=== PATIENT | male | born 1955 | race Caucasian/White ===

== ENCOUNTER 2020-06-07 11:44 | Outpatient (NON) | payer MEDICARE, OTHER, SELFPAY ==
[2020-06-07 13:29] LABS: Appearance Synovial Fluid Clear (Clear); Color Synovial Fluid Yellow (Colorless); Nucleated Cell Synovial Fluid 1867 /uL (0-200); Source Synovial Fluid Synovial fluid
[2020-06-07 13:30] LABS: Lymphocytes Synovial Fluid 13 %; Macrophages Synovial Fluid 8 %; Monocytes Synovial Fluid 2 %; Neutrophils Synovial Fluid 77 % (0-25); RBC Synovial Fluid 610 /uL (0-0)
[2020-06-07 13:54] LABS: Crystals Synovial Fluid Few Cppd (None Seen)
== END 2020-06-07 11:45 ==
PROVIDERS: PCP Family Medicine; Visit Provider Orthopaedic Surgery
DX: M25.561 Pain in right knee (principal)
CPT/HCPCS: 88108; 89051; 89060

== ENCOUNTER → 2021-01-16 08:47 | Outpatient (CLI) | payer MEDICARE, OTHER, SELFPAY ==
[2021-01-16 18:14] LABS: SARS-CoV-2 RNA PCR Negative
== END ==
PROVIDERS: PCP Family Medicine; Visit Provider Physician Assistant
DX: Z20.822 Contact with and (suspected) exposure to COVID-19 (principal); R05 Cough
CPT/HCPCS: C9803; U0003; U0005

== ENCOUNTER 2021-08-20 09:19 | Outpatient (CLI) | payer MEDICARE, OTHER, SELFPAY ==
--- NOTE | 2021-08-20 09:25 | ECG_ITS ---
Measurements Intervals [place] Rate: 64 P: -78 VA: 310 QRS: -7 QRSD: 91 T: 27 QT: 412 QTc: 427 Interpretive Statements SINUS OR ECTOPIC ATRIAL RHYTHM WITH SECOND DEGREE AV BLOCK, TYPE II EARLY PRECORDIAL R/S TRANSITION ABNORMAL ECG Electronically Signed On 08-20-2021 10:12:32 TECHNICAL PROJECT COORDINATOR by Barrera Chisholm D.O.
[2021-08-20 10:31] LABS: Add Urine Microscopic? YES; Appearance Urine Cloudy (Clear); Bilirubin Urine Negative (Negative); Blood Urine 3+ (Negative); Color Urine Yellow (Yellow); Glucose Urine UA Negative (Negative); Ketones Urine Negative (Negative); Leukocyte Esterase Ur 3+ LEU/UL (Negative); Nitrate Urine Negative (Negative); Protein Urine 2+ mg/dL (Negative); RBC Urine 21-50 /hpf (0-2); Specific Grav Ur 1.009 (1.001-1.035); Squamous Epithelial Cell Urine Rare /hpf (Few); Urobilinogen Urine Negative mg/dL (<2.0); WBC Clumps Urine Present /HPF; WBC Urine >75 /hpf
[2021-08-20 10:39] LABS: Anion Gap 6 mmol/L (8-16); Blood Urea Nitrogen 17 mg/dL (9-20); Calcium 9.2 mg/dL (8.4-10.2); Carbon Dioxide 27 mmol/L (22-30); Chloride 104 mmol/L (98-107); Estimated Glomerular Filt Rate > 60; Glucose 111 mg/dL (65-110); Potassium 3.8 mmol/L (3.4-5.0); Sodium 137 mmol/L (137-145)
== END 2021-08-20 09:20 | disposition home or self-care (01) ==
LOC: ANHSURGERY 09:24
PROVIDERS: Anesthesiology; PCP Family Medicine; Visit Provider Urology
DX: Z01.818 Encounter for other preprocedural examination (principal); N40.0 Benign prostatic hyperplasia without lower urinary tract symptoms; I10 Essential (primary) hypertension; Z79.899 Other long term (current) drug therapy; R94.31 Abnormal electrocardiogram [ECG] [EKG]
CPT/HCPCS: 36415; 80048; 81001; 87086; 87088; 93005

== ENCOUNTER 2021-08-23 01:49 | Day surgery (SDC) | payer MEDICARE, OTHER, SELFPAY ==
--- NOTE | 2021-08-13 14:57 | PM.IMHP ---
H&P: HPI History of Present Illness Date/Time: 08/13/21 14:57 Pleasant 65-year-old with longstanding obstructive voiding symptoms who initially presented to our practice and June 2021 he was found to have residual volumes of greater than 900 cc. He had failed an attempted alpha blockers. Urodynamics revealed a detrusor pressure of 100 cm water with low flow. Rectal exam revealed approximately a 30 g prostate. After discussion of options including minimally invasive procedures such as Urolift, microwave thermal therapy, REzum, etc, he is elected for a TURP. He is aware of the risk is procedure including, but not limited to, adverse cardiopulmonary events, hematuria, urinary incontinence and persistent urinary retention. Chief Complaint: Urinary retention Review of Systems Cardiovascular: Cardiovascular: Denies chest pain, Denies lightheadedness, Denies palpitations and Denies dyspnea Respiratory: Respiratory: Denies dyspnea Gastrointestinal: Gastrointestinal: Denies diarrhea, Denies nausea and Denies vomiting Genitourinary: Genitourinary: Denies hematuria and Denies dysuria Endocrine: Endocrine: Denies palpitations PMFSH Past Medical History Medical History Fistula HLD (hyperlipidemia) Hypertension Normal colonoscopy (~2017) repeat in 5 years 07/27/18 Prostatic hypertrophy Urinary incontinence Surgical History Surgical History H/O lateral meniscus repair of left knee H/O lateral meniscus repair of right knee History of tonsillectomy Social History Social History Smoking status: Never smoker Second hand tobacco smoke exposure: No Alcohol intake: current Alcohol use details: 1 drink a week. Substance use: never Substance use type: does not use Gender identity (if verbalized by the patient): Male Meds Home Medications and Allergies Home Medications Medication Instructions Recorded Confirmed Type aspirin 81 mg tablet,delayed 81 mg PO DAILY 07/14/19 05/31/21 History release omega-3 fatty acids-fish oil 300 cap PO 07/14/19 05/31/21 History mg-500 mg capsule fluticasone propionate 50 1 spray NASAL DAILY PRN 07/19/19 05/31/21 History mcg/actuation nasal spray,suspension multivitamin 1 tablet PO DAILY 07/19/19 05/31/21 History saw palmetto 450 mg capsule 450 mg PO DAILY cap 07/19/19 05/31/21 History cholecalciferol (vitamin D3) 25 25 mcg PO DAILY 05/25/20 05/31/21 History mcg (1,000 unit) capsule cetirizine 10 mg tablet 10 mg PO DAILY PRN tablet 02/20/21 05/31/21 History quinapril 20 1 tablet PO DAILY #90 tablet 02/22/21 05/31/21 Rx mg-hydrochlorothiazide 25 mg tablet hydralazine 25 mg tablet See Rx Instructions .ROUTE 05/23/21 05/31/21 Rx .COMPLEX #180 tablet ciprofloxacin HCl 250 mg tablet 250 mg PO Q12H #28 tablet 05/31/21 05/31/21 Rx silodosin 8 mg capsule 8 mg PO DAILY #90 cap 07/27/21 Rx Allergies Allergy/AdvReac Type Severity Reaction Status Date / Time pseudoephedrine Allergy Unknown Hypertensio Verified 05/31/21 11:09 n Exam Const: General: no acute distress Resp: Effort & Inspection: normal respiratory effort GI: Inspection: non-distended GI Palp: No abdominal tenderness and No Guarding due to palpation present (GI) Auscultation: normal bowel sounds Assessment and Plan Assessment and plan (1) Urinary retention due to benign prostatic hyperplasia: Code(s): N40.1 - Benign prostatic hyperplasia with lower urinary tract symptoms; R33.8 - Other retention of urine Status: Acute
[2021-08-16 14:21] VITALS: BMI 37.3
--- NOTE | 2021-08-16 14:40 | PC.NURSE ---
Report to the Outpatient Waiting Room, entrance under the green pavilion located off [facility], at time _1100_ on date _08/23/21__. OR Time: _1 PM_. - You and your visitor will be asked a series of questions to screen for COVID 19 for your protection. - A mask is required within the hospital. - NO visitors is allowed at this time. Patient visitors will be guided where to wait when not with patient. Preoperative COVID Testing Requirements: No COVID Test needed if: (proof is required; if not received patient will have Rapid Test prior to entry) - Patient has received COVID Vaccine at least 14 days prior to procedure date or - Patient has positive COVID test result within last 90 days of surgery date. COVID Test needed if above criteria is not met If not COVID vaccinated a COVID test must be conducted within 72 hours of surgery and patient is asked to isolate self from time of testing until procedure. You will go to the [facility] for your COVID testing. The [facility] site is located at the corner of [address] [facility]. You will only be called if COVID results are positive and your surgeon may reschedule your elective surgery date. Patients may have clear liquids (water, carbonated beverages, clear teas, apple juice) until 3 hours prior to surgery with a maximum of 20 ounces. (1000 AM) - No food from midnight until time of surgery - Infants may have breast milk until 4 hours before surgery, formula 6 hours prior to surgery. - Children will be allowed to drink immediately following surgery. If applicable, please bring a bottle or sippy cup to assist with drinking. Juice, water, soda, and popsicles are readily available. For infants on formula, please bring formula the day of surgery. Pacifiers are allowed. Take the following medications with a SIP of water the morning of surgery: _HYDRALAZINE_ Medications to discontinue per physician _ASPIRIN, IBUPROFEN, NAPROXEN - PER DR. DEVI__ ALL VITAMINS & SUPPLEMENTS - 3 DAYS PRIOR PER ANESTHESIA - Date to take last dose__08/19/21 Please no make-up, nail singaporean, hairspray, perfume, deodorant, or body powder the day of surgery. No jewelry (including any body piercings) or valuables the day of surgery, leave them at home. Please take a shower or bath the night before, or the morning of, surgery with an antibacterial soap. Wear comfortable, loose fitting clothing. Children are encouraged to wear pajamas. - Jewelry must be removed prior to entering the operating room. Rings and piercings that are not removed may be cut off. - The hospital will not accept responsibility for valuables. - Please leave all valuables, including medications, at home the day of surgery. If you are going home after surgery, a licensed straight truck driver must drive you home. - NO public transportation without another adult. - We recommend that an adult stay with you for 24 hours following discharge. - We also recommend that you do not drive, make important decision, drink alcoholic beverages, or take any drugs that were not prescribed by your health care provider for at least 24 hours after your discharge time. For Pediatric surgeries, we recommend two adults accompany the child home (only one inside the building at this time). Follow any additional instructions given to you from your surgeon. Telephone instructions given to ___PT and asked if any additional questions and then verbalized understanding. Patient advised to call surgeon office or pre surgery nurse liaison [phone] if any additional questions.
[2021-08-23] VITALS (14 sets, daily range): BP systolic 130–151; BP diastolic 69–90; PULSE 54–79; RESP 12–20; TEMP 35.5–36.9; O2SAT 95–100; BMI 36.8
--- NOTE | 2021-08-23 06:56 | WPDHPUPDATE1 ---
History and Physical Update Update Date/Time: 08/23/21 06:56 History and Physical has been reviewed, including an updated exam of the patient. There are NO changes in the patient's condition. Risks, benefits, and alternatives have been discussed and questions answered. Patient agrees to proceed with procedure.
[2021-08-23] MEDS: LACTATED RINGERS 1,000 ML 30 ML IV CONT (11:29)
--- NOTE | 2021-08-23 11:49 | WPDANESEPPF ---
Anes - Initial Pre Proc Eval Procedure: Operation Date: 08/23/21 13:00 Proposed Procedures p Trans Urethral Resection Prostate - Tyler Lang MD Date/Time: 08/23/21 11:49 Surgeon: Tyler Lang MD Pre Op Diagnosis: bph Patient Data Age: 65 Gender: M Height: 1.83 m Weight: 123 kg Last Vital Signs Temp 36.7 C 08/23/21 11:15 Pulse 62 08/23/21 11:15 Resp 20 08/23/21 11:15 BP 150/89 H 08/23/21 11:15 Pulse Ox 100 08/23/21 11:15 Allergies Allergy/AdvReac Type Severity Reaction Status Date / Time pseudoephedrine Allergy Unknown Hypertensio Verified 08/16/21 14:13 n Home Medications Medication Instructions Recorded Confirmed Type aspirin 81 mg tablet,delayed 81 mg PO HS 07/14/19 08/16/21 History release omega-3 fatty acids-fish oil 300 1 cap PO HS 07/14/19 08/16/21 History mg-500 mg capsule fluticasone propionate 50 1 spray NASAL DAILY PRN 07/19/19 08/16/21 History mcg/actuation nasal spray,suspension multivitamin 1 tablet PO DAILY 07/19/19 08/16/21 History saw palmetto 450 mg capsule 450 mg PO DAILY cap 07/19/19 08/16/21 History cholecalciferol (vitamin D3) 25 25 mcg PO DAILY 05/25/20 08/16/21 History mcg (1,000 unit) capsule cetirizine 10 mg tablet 10 mg PO DAILY PRN tablet 02/20/21 08/16/21 History hydralazine 25 mg BID 08/16/21 08/16/21 History ibuprofen 200 mg PO BID PRN 08/16/21 08/16/21 History naproxen 250 mg PO BID PRN 08/16/21 08/16/21 History quinapril-hydrochlorothiazide 1 tablet PO QAM 08/16/21 08/16/21 History Patient hx anesthesia problems: none Family hx anesthesia problems: none Results Review: All pre-operative results and documents have been reviewed as part of the pre-operative evaluation. [facility] Past Medical History Medical History Fistula HLD (hyperlipidemia) Hypertension Normal colonoscopy (~2018) repeat in 5 years 07/27/18 Prostatic hypertrophy Urinary incontinence Surgical History Surgical History H/O lateral meniscus repair of left knee H/O lateral meniscus repair of right knee History of tonsillectomy Social History Social History Smoking status: Never smoker Tobacco type: cigarettes Second hand tobacco smoke exposure: No Additional smoking assessment comments: STATES SMOKED FOR SHORT TIME WHILE IN COLLE[place] Alcohol intake: current Drinks per week: 1 Alcohol use details: 1 drink a week. Substance use: never Substance use type: does not use Living arrangements: with family Gender identity (if verbalized by the patient): Male Spiritual care concerns: No Anes - Eval Final PreProcedure Day of Procedure 08/23/21 11:49 Patient weight: obese Heart: regular rate and rhythm Lungs: clear to auscultation and normal air movement Airway: Mallampati scale class II Neurological: alert and oriented Last oral intake: >/= 8 hours ASA classification: III Emergent: no Anesthetic plan: proceed Anesthesia type and monitoring: general LMA and standard monitoring Results Review: All pre-operative results and documents have been reviewed as part of the pre-operative evaluation. Informed Consent: The patient's anesthetic plan and its attendant risks and benefits were discussed with the patient/family/POA. Questions were solicited and answers provided to the satisfaction of the patient/family/POA.
[2021-08-23] MEDS: ceFAZolin 3 GM/D5W 100 ML 100 ML IVPB (13:13)
[2021-08-23] MEDS: LIDOCAINE HCL 2% GEL UROJET 10 ML PKG MUCOUS MEM (13:58)
--- NOTE | 2021-08-23 14:07 | P.OP_ITS ---
Procedure Note - Detailed Date of Procedure 08/23/21 Pre-op Diagnosis BPH Post-op Diagnosis same Procedure Performed TURP Surgeon Tyler Lang MD Anesthesia general Description of Procedure The patient was brought to the operative suite where he is prepped and draped in routine sterile fashion while in the dorsal lithotomy position after the uneventful induction of a general LMA anesthetic. A 27 [place] resectoscope sheath was placed into his bladder. He had no urethral strictures. The patient had trilobar hyperplasia with a small median lobe. The bladder itself was endoscopically normal, showing no mucosal hyperemia, intravesical neoplasm or foreign bodies. There was a single, orthotopic ureteral orifice bilaterally. These orifices were identified and preserved throughout the remainder of the procedure. Attention was first turned to resection of the median lobe. This resection was undertaken from the bladder neck to the verumontanum and carried out until the transverse fibers of the bladder neck were identified. The left lateral lobe was then resected starting at the 6 o'clock position, working counter clockwise to the 12 o'clock position. Again, resection was carried out from the bladder neck to the verumontanum until the capsular fibers of the prostate were identified. The right lateral lobe was resected in a similar fashion starting at the 6 o'clock position working clockwise to the 12 o'clock position and carried out until the capsular fibers of the prostate were identified. Apical tissue was then circumferentially resected. All chips were evacuated from the bladder using an [employer] evacuator. Hemostasis was obtained with electric cautery. The ureteral orifices were again inspected and found to be without injury. Estimated blood loss throughout this procedure was 50cc. The patient was taken to recovery room having tolerated this well. Estimated Blood Loss 50 Drains Yes Packing No Pathology yes Complications No immediate complications Condition stable Disposition PACU
[2021-08-23] MEDS: fentaNYL CITRATE INJ (*CRX) 100 MCG/2 ML VIAL 25 MCG IV PUSH (14:30)
--- NOTE | 2021-08-23 15:26 | PC.NURSE ---
This patient, Ammon Larson, was admitted to [facility]. Patient oriented to hospital policies and general routines including ID bracelet, bed and alarms, visiting hours, pain management, procedures, bathroom and other care routines, personal items, smoking policy, room service/diet, and visiting hours. Information on how to activate the Rapid Response Team has been discussed. Patient encouraged to report perceived risks to care and to ask questions if they do not understand what they are told or what they should do.
[2021-08-23] MEDS: DEXTROSE 5%/LACTATED RINGERS 1,000 ML 125 ML IV CONT (16:06)
[2021-08-23] MEDS: DOCUSATE SODIUM 100 MG CAPSULE PO (17:35)
[2021-08-23] MEDS: hydrALAZINE HCL 25 MG TABLET PO (18:16)
[2021-08-24] MEDS: ZOLPIDEM TARTRATE (*CRX) 5 MG TABLET PO (00:55)
[2021-08-24 01:10] VITALS: BP 157/88; PULSE 86; RESP 20; TEMP 35.2; O2SAT 96
[2021-08-24] MEDS: HYDROcodone/acetaminophen (*CRX) 5-325 MG TABLET 1 TAB PO (03:57)
[2021-08-24 05:10] VITALS: BP 133/81; PULSE 62; RESP 18; TEMP 36.2; O2SAT 95
[2021-08-24 05:47] LABS: Hematocrit 41.5 % (42.0-52.0); Hemoglobin 14.6 g/dL (14.0-18.0)
[2021-08-24 05:50] LABS: Anion Gap 8 mmol/L (8-16); Blood Urea Nitrogen 14 mg/dL (9-20); Calcium 8.9 mg/dL (8.4-10.2); Carbon Dioxide 22 mmol/L (22-30); Chloride 105 mmol/L (98-107); Estimated CRCL calculation 86 ml/min; Estimated Glomerular Filt Rate > 60; Glucose 132 mg/dL (65-110); Potassium 3.9 mmol/L (3.4-5.0); Sodium 135 mmol/L (137-145)
--- NOTE | 2021-08-24 06:59 | WPDUROPN2 ---
Progress Note: A&P Assessment and Plan (1) Urinary retention due to benign prostatic hyperplasia: Code(s): N40.1 - Benign prostatic hyperplasia with lower urinary tract symptoms; R33.8 - Other retention of urine Status: Acute Assessment and Plan: Doing well POD #1 TURP - urine clear and comfortable. Stop CBI early this morning. Anticipate voiding trial and discharge midday. Subjective Subjective Date/Time Seen: 08/24/21 06:59 Doing well POD #1 TURP Review of Systems Cardiovascular: Cardiovascular: Denies chest pain, Denies lightheadedness, Denies palpitations and Denies dyspnea Respiratory: Respiratory: Denies dyspnea Gastrointestinal: Gastrointestinal: Denies diarrhea, Denies nausea and Denies vomiting Genitourinary: Genitourinary: Denies hematuria and Denies dysuria Endocrine: Endocrine: Denies palpitations Exam Const: General: no acute distress Resp: Effort & Inspection: normal respiratory effort GI: Inspection: non-distended GI Palp: No abdominal tenderness and No Guarding due to palpation present (GI) Auscultation: normal bowel sounds Objective Data Vital Signs Vital Signs: Vital Signs - 24 hr 08/23/21 11:15 08/23/21 14:11 08/23/21 14:20 Temperature 98.0 F 98.5 F Pulse Rate 62 56 L 58 L Respiratory Rate 20 16 12 Blood Pressure 150/89 H 130/87 134/90 Pulse Oximetry 100 96 98 08/23/21 14:35 08/23/21 14:50 08/23/21 15:05 Temperature Pulse Rate 58 L 66 54 L Respiratory Rate 12 16 14 Blood Pressure 145/85 H 151/87 H 151/87 H Pulse Oximetry 98 96 95 08/23/21 15:24 08/23/21 15:26 08/23/21 15:41 Temperature 97.5 F L 97.9 F Pulse Rate 64 63 63 Respiratory Rate 15 16 16 Blood Pressure 139/81 147/90 H 146/83 H Pulse Oximetry 98 96 96 08/23/21 16:15 08/23/21 16:30 08/23/21 17:00 Temperature 97.2 F L Pulse Rate 66 55 L 70 Respiratory Rate 16 16 16 Blood Pressure 136/85 136/89 145/75 H Pulse Oximetry 98 99 99 08/23/21 18:00 08/23/21 21:10 08/24/21 01:10 Temperature 96 F L 95.3 F L Pulse Rate 71 79 86 Respiratory Rate 16 18 20 Blood Pressure 141/69 H 149/80 H 157/88 H Pulse Oximetry 100 95 96 08/24/21 05:10 Temperature 97.1 F L Pulse Rate 62 Respiratory Rate 18 Blood Pressure 133/81 Pulse Oximetry 95 Intake/Output Intake/Output: Intake & Output 08/21/21 08/22/21 08/23/21 08/24/21 23:59 23:59 23:59 23:59 Intake Total 38996 7820 Output Total 29404 7300 Balance -3660 520 Meds/Results Medications: Active Medications Generic Name Dose Route Start Last Admin Trade Name Freq PRN Reason Stop Dose Admin Acetaminophen 1,000 mg 08/23/21 19:13 Acetaminophen 500 Mg Tablet PO Q6H PRN Mild Pain (1-3) or Fever Hydrocodone Bitart/Acetaminophen 1 tab 08/23/21 15:25 08/24/21 03:57 Hydrocodone/Acetaminophen (*Crx) 5-325 Mg Tablet PO 1 tab Q4H PRN Administration Pain Rated 4-6 Cephalexin HCl 500 mg 08/24/21 13:00 Cephalexin 500 Mg Capsule PO QID SIRENA Docusate Sodium 100 mg 08/23/21 17:00 08/23/21 17:35 Docusate Sodium 100 Mg Capsule PO 100 mg BID SIRENA Administration Hydralazine HCl 25 mg 08/23/21 18:00 08/23/21 18:16 Hydralazine Hcl 25 Mg Tablet PO 25 mg BID SIRENA Administration Hyoscyamine 0.125 mg 08/23/21 15:25 Hyoscyamine Sulfate 0.125 Mg Tablet SUBLINGUAL Q6H PRN Bladder Spasm Dextrose/Lactated Ringer's 1,000 mls @ 125 mls/hr 08/23/21 15:25 08/23/21 16:06 Dextrose 5%/Lactated Ringers IV CONT 125 mls/hr .Q8H SIRENA Administration Loratadine 10 mg 08/23/21 15:25 Loratadine 10 Mg Tablet PO DAILY PRN SEASONAL ALLERGIES Morphine Sulfate 2 mg 08/23/21 15:25 Morphine Sulfate (*Crx) 2 Mg/Ml Inj IV PUSH Q2H PRN Pain Rated 7-10 Naloxone HCl 0.1 mg 08/23/21 15:25 Naloxone Hcl 0.4 Mg/Ml Vial IV PUSH Q2M PRN Opiate Reversal Ondansetron HCl 4 mg 08/23/21 15:25 Ondansetron Inj 4 Mg/2 Ml Vial IV
[2021-08-24 07:55] VITALS: BP 135/73; PULSE 54; RESP 14; TEMP 36.8; O2SAT 97
[2021-08-24] MEDS: hydrALAZINE HCL 25 MG TABLET PO (08:37)
[2021-08-24] MEDS: DOCUSATE SODIUM 100 MG CAPSULE PO (08:37)
--- NOTE | 2021-08-24 09:56 | WPDANESPN ---
Anes - Prog Note Post-Op Date/Time: 08/24/21 09:56 Cardiovascular status: normal Respiratory status: normal Airway patency: baseline Mental status: baseline Post-Op hydration status: normal Vital Signs: Last Vital Signs Temp 36.8 C 08/24/21 07:55 Pulse 54 L 08/24/21 07:55 Resp 14 08/24/21 07:55 BP 135/73 08/24/21 07:55 Pulse Ox 97 08/24/21 07:55 Pain Score (VAS): 3 I/O: Intake & Output 08/23/21 08/24/21 08/24/21 23:59 07:59 15:59 Intake Total 63368 7820 360 Output Total 38876 7300 Balance 640 520 360 Laboratory Tests 08/24/21 05:29 08/24/21 05:29 08/24/21 08/24/21 05:29 05:29 Hgb 14.6 Hct 41.5 L Sodium 135 L Potassium 3.9 Chloride 105 Carbon Dioxide 22 Anion Gap 8 BUN 14 Creatinine 1.00 Estim Creat Clear Calc 86 Estimated GFR > 60 Glucose 132 H Calcium 8.9 Post-procedural complaints: none Patient Feedback: Patient satisfied with anesthetic care.
--- NOTE | 2021-08-24 12:36 | PM.DS ---
DS: Admitting Diagnosis Discharge Date 08/24/2021 @ 1236pm Admitting Diagnosis BPH DS: Discharge Diagnosis Discharge Diagnosis (1) Urinary retention due to benign prostatic hyperplasia: Code(s): N40.1 - Benign prostatic hyperplasia with lower urinary tract symptoms; R33.8 - Other retention of urine Status: Acute DS: Summary Hospital Course Hospital Course: This patient with longstanding prostatism refractory for medical management was admitted on the morning of his planned TURP. The procedure was undertaken on that same day in an uneventful fashion. His post-operative course was, likewise, uneventful. On the evening of the procedure he was tolerating a diet. On POD#1 his urine was clear on CBI. The urine remained clear and, therefore, the catheter was removed late morning. The patient was observed for several hours, until he demonstrated he could void effectively without significant hematuria. He was discharged with careful instruction on limiting physical activity x2 weeks and plans to f/ in 2-3 weeks. At discharge he was comfortable and tolerating a diet. Time Spent with Patient Time attestation: Total time spent providing and/or coordinating discharge services: 15min Exam Const: General: no acute distress Resp: Effort & Inspection: normal respiratory effort GI: Inspection: non-distended GI Palp: No abdominal tenderness and No Guarding due to palpation present (GI) Auscultation: normal bowel sounds DS: Data Data Completed and Pending Pending studies at discharge: Pending at discharge 08/23/21 13:55 Consult to Pathologist [PTH] Routine Labs on day of discharge: Labs from last 24 hours 08/24/21 08/24/21 05:29 05:29 Hgb 14.6 Hct 41.5 L Sodium 135 L Potassium 3.9 Chloride 105 Carbon Dioxide 22 Anion Gap 8 BUN 14 Creatinine 1.00 Estim Creat Clear Calc 86 Estimated GFR > 60 Glucose 132 H Calcium 8.9 Discharge Plan Discharge Patient Disposition: Home, Self-Care Discharge Instructions: 1) Activity: No lifting/straining >15lbs. x2 weeks. 2) Diet: Resume normal pre-admission diet. 3) Follow-up: 2-3 weeks / call office for appointment ([phone]). Patient Instructions: Pain Management (DC), Transurethral Prostatectomy (DC) Stand Alone Forms: General Discharge Instructions Discharge Orders: Discharge Order (Routine); Ordered 08/24/21 Ordered By: Tyler Lang Discharge Medications: New hydrocodone-acetaminophen 5-325 mg tablet 1 - 2 tablet PO Q6H PRN (Reason: pain) Qty: 20 RF: 0 docusate sodium [Colace] 100 mg capsule 100 mg PO DAILY Qty: 30 RF: 0 ciprofloxacin HCl 500 mg tablet 500 mg PO Q12H Qty: 6 RF: 0 Continued cholecalciferol (vitamin D3) 25 mcg (1,000 unit) capsule 25 mcg PO DAILY RF: 0 fluticasone propionate [Allergy Relief (fluticasone)] 50 mcg/actuation spray,suspension 1 spray NASAL DAILY PRN (Reason: allergy symptoms) RF: 0 multivitamin Tablet 1 tablet PO DAILY RF: 0 cetirizine [Zyrtec] 10 mg tablet 10 mg PO DAILY PRN (Reason: SEASONAL ALLERGIES ) RF: 0 ibuprofen 200 mg Capsule 200 mg PO BID PRN (Reason: Pain) RF: 0 hydralazine 25 mg tablet 25 mg BID RF: 0 quinapril-hydrochlorothiazide 20-25 mg tablet 1 tablet PO QAM RF: 0 Held aspirin [Adult Low Dose Aspirin] 81 mg tablet,delayed release (DR/EC) 81 mg PO HS RF: 0 Hold Instructions: Resume on 08/29/21. Fish Oil 300-500 mg capsule 1 cap PO HS RF: 0 Hold Instructions: Resume on 08/29/21. Discontinued saw palmetto 450 mg capsule 450 mg PO DAILY RF: 0
== END 2021-08-24 13:32 | disposition home or self-care (01) ==
LOC: ANHSURGERY 10:49 → ANHSUROVER 15:27 → ANHSURGERY 17:28 → ANHSUROVER 19:41
PROVIDERS: PCP Family Medicine; Visit Provider Urology
PROC: 0VT08ZZ Resection of Prostate, Via Natural or Artificial Opening Endoscopic (ICD-10-PCS; CPT 52601; principal; 2021-08-23 13:00)
DX: N40.1 Benign prostatic hyperplasia with lower urinary tract symptoms (principal); R33.8 Other retention of urine; R32 Unspecified urinary incontinence; Z79.82 Long term (current) use of aspirin; E78.5 Hyperlipidemia, unspecified; Z87.891 Personal history of nicotine dependence; E66.9 Obesity, unspecified; Z68.36 Body mass index [BMI] 36.0-36.9, adult
CPT/HCPCS: 52601; 36415; 80048; 85014; 85018; 88305; A9270; J0690; J1100; J2405; J2704; J3010; J7120; J7121

== ENCOUNTER 2021-12-27 07:59 | Outpatient (CLI) | payer MEDICARE, OTHER, SELFPAY ==
[2021-12-27 09:29] LABS: Basophils Absolute Auto 0.1 K/mm3 (0.0-0.1); Basophils Percent Auto 1.1 % (0.2-1.2); Eosinophils Absolute Auto 0.2 K/mm3 (0-0.3); Eosinophils Percent Auto 3.4 % (0-4.4); Hematocrit 47.4 % (42.0-52.0); Hemoglobin 16.3 g/dL (14.0-18.0); Immature Granulocyte Absolute 0.01 K/mm3 (0.00-0.031); Immature Granulocyte Percent A 0.2 % (0-0.5); Immature Platelet Fraction Pct 8.2 % (0.9-11.2); Lymphocytes Absolute Auto 1.36 K/mm3 (0.9-3.2); Lymphocytes Percent Auto 28.8 % (18.3-44.2); Mean Corpuscular HGB Conc 34.4 g/dl (32-36); Mean Corpuscular Hemoglobin 31.4 pg (26-34); Mean Corpuscular Volume 91.3 fl (80-100); Mean Platelet Volume 11.3 fl (7.4-10.4); Monocytes Absolute Auto 0.5 K/mm3 (0.1-0.6); Neutrophils Absolute Auto 2.6 K/mm3 (1.3-6.7); Neutrophils Percent Auto 55.5 % (45.5-73.1); Platelet Count Result 122 k/mm3 (150-375); Red Blood Count 5.19 M/mm3 (4.6-6.20); Red Cell Distribution Width 12.9 % (11.5-14.5); White Blood Count 4.7 K/mm3 (4.5-10.0)
[2021-12-27 09:33] LABS: Urine Cotinine NEGATIVE
[2021-12-27 09:35] LABS: Albumin Level 4.2 g/dL (3.5-5.1); Anion Gap 6 mmol/L (8-16); Blood Urea Nitrogen 19 mg/dL (9-20); Carbon Dioxide 25 mmol/L (22-30); Chloride 105 mmol/L (98-107); Estimated Glomerular Filt Rate > 60; Glucose 109 mg/dL (65-110); Sodium 136 mmol/L (137-145)
[2021-12-27 15:55] LABS: Hemoglobin A1C 5.5 % (<5.7)
== END 2021-12-27 08:00 | disposition home or self-care (01) ==
PROVIDERS: PCP Family Medicine; Visit Provider Orthopaedic Surgery
DX: Z01.812 Encounter for preprocedural laboratory examination (principal); M17.11 Unilateral primary osteoarthritis, right knee; Z51.81 Encounter for therapeutic drug level monitoring; Z79.899 Other long term (current) drug therapy
CPT/HCPCS: 80048; 80307; 82040; 83036; 85025; 85055; 86850; 86900; 86901; 87070

== ENCOUNTER 2022-01-17 00:45 | Day surgery (SDC) | payer MEDICARE, OTHER, SELFPAY ==
[2022-01-11 13:55] VITALS: BMI 37.5
--- NOTE | 2022-01-11 14:07 | PC.NURSE ---
Report to the Outpatient Waiting Room, entrance under the green pavilion located off [facility], at time __8:30AM on date __01/17/22 . OR Time: __10:30AM . - You and your visitor will be asked a series of questions to screen for COVID 19 for your protection. - Only one visitor is allowed at this time. - The patient visitor is requested to leave or wait in car when not with patient. - A mask is required within the hospital. Patients may have clear liquids (water, carbonated beverages, clear teas, apple juice) until 3 hours prior to surgery with a maximum of 20 ounces. - No food from midnight until time of surgery - Infants may have breast milk until 4 hours before surgery, formula 6 hours prior to surgery. - Children will be allowed to drink immediately following surgery. If applicable, please bring a bottle or sippy cup to assist with drinking. Juice, water, soda, and popsicles are readily available. For infants on formula, please bring formula the day of surgery. Pacifiers are allowed. Take the following medications with a SIP of water the morning of surgery: ___HYDRALAZINE Medications to discontinue per physician ___HOLD ALL VITAMINS/SUPPLEMENTS 7 DAYS PRE-OP Date to take last dose 01/11/22 Please no make-up, nail surinamese, hairspray, perfume, deodorant, or body powder the day of surgery. No jewelry (including any body piercings) or valuables the day of surgery, leave them at home. Please take a shower or bath the night before, or the morning of, surgery with an antibacterial soap. Wear comfortable, loose fitting clothing. Children are encouraged to wear pajamas. - Jewelry must be removed prior to entering the operating room. Rings and piercings that are not removed may be cut off. - The hospital will not accept responsibility for valuables. - Please leave all valuables, including medications, at home the day of surgery. If you are going home after surgery, a licensed food service driver must drive you home. - NO public transportation without another adult. - We recommend that an adult stay with you for 24 hours following discharge. - We also recommend that you do not drive, make important decision, drink alcoholic beverages, or take any drugs that were not prescribed by your health care provider for at least 24 hours after your discharge time. For Pediatric surgeries, we recommend two adults accompany the child home (only one inside the building at this time). Follow any additional instructions given to you from your surgeon. If you or anyone in your household have experienced Covid symptoms in the past week, please notify your surgeon or the nurse liaison at the phone number below for possible testing. Telephone instructions given to __PATIENT and asked if any additional questions and then verbalized understanding. Patient advised to call surgeon office or pre surgery nurse liaison [phone] if any additional questions.
--- NOTE | 2022-01-15 07:17 | PM.HPGS ---
History of Present Illness History of Present Illness Consent: Risks, benefits, and alternatives have been discussed and questions answered. Patient agrees to proceed with procedure. Chief complaint: bladder neck contracture and bph Narrative: Ammon Larson is a 66 year old male Who is status post TURP in August 2021. He really should presented with incomplete bladder emptying and cystoscopy in the office showed a tight bladder neck contracture. I was able to dilate to 18 Korean but he continues to have obstructive voiding symptoms. After discussion of options he elects for cysto with urethral dilatation under anesthesia. He is aware of the risk including, but not limited to, adverse cardiopulmonary events, recurrent urethral stricture and possible need for a short term urethral catheter. Review of Systems Cardiovascular: Cardiovascular: Denies chest pain, Denies lightheadedness, Denies palpitations and Denies dyspnea Respiratory: Respiratory: Denies dyspnea Gastrointestinal: Gastrointestinal: Denies diarrhea, Denies nausea and Denies vomiting Genitourinary: Genitourinary: Denies hematuria and Denies dysuria Endocrine: Endocrine: Denies palpitations PMFSH Past Medical History Medical History Fistula HLD (hyperlipidemia) Hypertension Normal colonoscopy (~2018) repeat in 5 years 07/27/18 Prostatic hypertrophy Urinary incontinence Surgical History Surgical History H/O lateral meniscus repair of left knee H/O lateral meniscus repair of right knee History of tonsillectomy S/P TURP (status post transurethral resection of prostate) Family History Family History Other Unknown family medical history Social History Social History Smoking status: Never smoker Second hand tobacco smoke exposure: No Additional smoking assessment comments: DENIES ANY FORM OF TOBACCO USE Alcohol intake: current Drinks per week: 1 Alcohol use details: 2 DRINKS PER MONTH Substance use: never Substance use type: does not use Living arrangements: with family Additional living arrangements comments: 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ion Instructions Recorded Confirmed Type omega-3 fatty acids-fish oil 300 1 cap PO HS 07/14/19 01/11/22 History mg-500 mg capsule (Fish Oil) fluticasone propionate 50 1 spray intranasal PRN PRN allergy 07/19/19 01/11/22 History mcg/actuation nasal symptoms spray,suspension (Allergy Relief (fluticasone)) multivitamin 1 tablet PO DAILY 07/19/19 01/11/22 History cholecalciferol (vitamin D3) 25 25 mcg PO DAILY 05/25/20 01/11/22 History mcg (1,000 unit) capsule cetirizine 10 mg tablet (Zyrtec) 10 mg PO DAILY PRN SEASONAL 02/20/21 01/11/22 History ALLERGIES ibuprofen 200 mg capsule 400 mg PO BID PRN Pain 08/16/21 01/11/22 History quinapril 20 1 tablet PO QAM #90 tabs 10/21/21 01/11/22 Rx mg-hydrochlorothiazide 25 mg tablet magnesium 250 mg tablet 250 mg PO DAILY 12/27/21 01/11/22 History silodosin 4 mg capsule 4 mg PO QAM 12/27/21 01/11/22 History hydralazine 25 mg tablet 25 mg PO BID 01/11/22 01/11/22 History Allergies Allergy/AdvReac Type Severity Reaction Status Date / Time pseudoephedrine Allergy Unknown Hypertensio Verified 01/11/22 13:50 n Exam Const: General: no acute distress Resp: Effort & Inspection: normal respiratory effort GI: Inspection: non-distended GI Palp: No abdominal tenderness and No Guarding due to palpation present (GI) Auscultation: normal bowel sounds Assessment and Plan Assessment
--- NOTE | 2022-01-17 06:32 | WPDHPUPDATE1 ---
History and Physical Update Update Date/Time: 01/17/22 06:32 History and Physical has been reviewed, including an updated exam of the patient. There are NO changes in the patient's condition. Risks, benefits, and alternatives have been discussed and questions answered. Patient agrees to proceed with procedure.
--- NOTE | 2022-01-17 09:13 | WPDANESEPPF ---
Anes - Initial Pre Proc Eval Procedure: Operation Date: 01/17/22 10:30 Proposed Procedures p Cystoscopy, Urethral Dilatation - Tyler Lang MD Date/Time: 01/17/22 09:13 Surgeon: Tyler Lang MD Pre Op Diagnosis: bladder neck contracture and bph Patient Data Age: 66 Gender: M Height: 1.8 m Weight: 122 kg Allergies Allergy/AdvReac Type Severity Reaction Status Date / Time pseudoephedrine Allergy Unknown Hypertensio Verified 01/11/22 13:50 n Home Medications Medication Instructions Recorded Confirmed Type omega-3 fatty acids-fish oil 300 1 cap PO HS 07/14/19 01/11/22 History mg-500 mg capsule (Fish Oil) fluticasone propionate 50 1 spray intranasal PRN PRN allergy 07/19/19 01/11/22 History mcg/actuation nasal symptoms spray,suspension (Allergy Relief (fluticasone)) multivitamin 1 tablet PO DAILY 07/19/19 01/11/22 History cholecalciferol (vitamin D3) 25 25 mcg PO DAILY 05/25/20 01/11/22 History mcg (1,000 unit) capsule cetirizine 10 mg tablet (Zyrtec) 10 mg PO DAILY PRN SEASONAL 02/20/21 01/11/22 History ALLERGIES ibuprofen 200 mg capsule 400 mg PO BID PRN Pain 08/16/21 01/11/22 History quinapril 20 1 tablet PO QAM #90 tabs 10/21/21 01/11/22 Rx mg-hydrochlorothiazide 25 mg tablet magnesium 250 mg tablet 250 mg PO DAILY 12/27/21 01/11/22 History silodosin 4 mg capsule 4 mg PO QAM 12/27/21 01/11/22 History hydralazine 25 mg tablet 25 mg PO BID 01/11/22 01/11/22 History Patient hx anesthesia problems: none Family hx anesthesia problems: none Results Review: All pre-operative results and documents have been reviewed as part of the pre-operative evaluation. [facility] Past Medical History Medical History Fistula HLD (hyperlipidemia) Hypertension Normal colonoscopy (~2017) repeat in 5 years 07/27/18 Prostatic hypertrophy Urinary incontinence Surgical History Surgical History H/O lateral meniscus repair of left knee H/O lateral meniscus repair of right knee History of tonsillectomy S/P TURP (status post transurethral resection of prostate) Family History Family History Other Unknown family medical history Social History Social History Smoking status: Never smoker Second hand tobacco smoke exposure: No Additional smoking assessment comments: DENIES ANY FORM OF TOBACCO USE Alcohol intake: current Drinks per week: 1 Alcohol use details: 2 DRINKS PER MONTH Substance use: never Substance use type: does not use Living arrangements: with family Additional living arrangements comments: 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 Informed Consent: The patient's anesthetic plan and its attendant risks and benefits were discussed with the patient/family/POA. Questions were solicited and answers provided to the satisfaction of the patient/family/POA.
[2022-01-17] MEDS: LACTATED RINGERS 1,000 ML 30 ML IV CONT (09:15)
[2022-01-17 09:19] VITALS: BP 152/84; PULSE 48; RESP 16; TEMP 36.3; O2SAT 98
[2022-01-17] MEDS: ceFAZolin 3 GM/D5W 100 ML 100 ML IVPB (09:46)
[2022-01-17] MEDS: LIDOCAINE HCL 2% GEL UROJET 10 ML PKG MUCOUS MEM (09:57)
--- NOTE | 2022-01-17 10:10 | W.PM.PROC2 ---
Procedure Note - Detailed Date of Procedure 01/17/22 Pre-op Diagnosis Bladder neck contracture and bph Post-op Diagnosis Same Procedure Performed Cystoscopy, urethral dilatation Surgeon Tyler Lang MD Anesthesia MAC Description of Procedure The patient was brought to the operative suite where he was prepped and draped in a routine sterile fashion while in a dorsal lithotomy position after the uneventful induction of a general LMA anesthetic. Cystoscopy was undertaken with a 19F rigid cystoscope. There was moderately constricting bladder neck contracture. The prostatic urethral estimated length was 2.0cm. There was moderate obstruction of the prostatic urethra with no median lobe enlargement. The bladder itself was endoscopically normal without foreign body or neoplasm. The bladder mucosa was without hyperemia. There was a single orthotopic ureteral orifice bilaterally with clear efflux of urine. Using the disposable urethral dilators over a 0.035 in guidewire I dilated the urethra and bladder neck from 14->24 F. The bladder was emptied and the patient was taken to the recovery room in good condition Estimated Blood Loss 0 Pathology None sent Complications No immediate complications Condition Stable Disposition PACU
[2022-01-17 10:16] VITALS: BP 111/68; PULSE 47; RESP 12; O2SAT 96
[2022-01-17 10:45] VITALS: BP 128/69; PULSE 45; RESP 20
[2022-01-17 11:05] VITALS: BP 124/71; PULSE 44; RESP 20
== END 2022-01-17 11:16 | disposition home or self-care (01) ==
PROVIDERS: PCP Family Medicine; Visit Provider Urology
PROC: 0T7D8ZZ Dilation of Urethra, Via Natural or Artificial Opening Endoscopic (ICD-10-PCS; CPT 52281; principal; 2022-01-17 10:30)
DX: N35.919 Unspecified urethral stricture, male, unspecified site (principal); N32.0 Bladder-neck obstruction; I10 Essential (primary) hypertension; E78.5 Hyperlipidemia, unspecified; Z90.79 Acquired absence of other genital organ(s); E66.9 Obesity, unspecified; Z68.37 Body mass index [BMI] 37.0-37.9, adult
CPT/HCPCS: 52281; A9270; J0690; J1100; J1885; J2405; J2704; J3010; J7120

== ENCOUNTER → 2022-02-01 05:03 | Outpatient (CLI) | payer MEDICARE, SELFPAY ==
[2022-02-01 12:10] LABS: Influenza A QL RT-PCR Negative (Negative); Influenza B QL RT-PCR Negative (Negative); SARS-CoV-2 RNA PCR Negative
== END ==
PROVIDERS: PCP Family Medicine; Visit Provider Physician Assistant
DX: Z20.822 Contact with and (suspected) exposure to COVID-19 (principal)
CPT/HCPCS: 87502; C9803; U0003; U0005

== ENCOUNTER 2022-02-19 08:24 | Outpatient (CLI) | payer MEDICARE, SELFPAY ==
[2022-02-19 09:01] LABS: Basophils Absolute Auto 0.1 K/mm3 (0.0-0.1); Basophils Percent Auto 0.9 % (0.2-1.2); Eosinophils Absolute Auto 0.2 K/mm3 (0-0.3); Hemoglobin 15.5 g/dL (14.0-18.0); Immature Granulocyte Absolute 0.02 K/mm3 (0.00-0.031); Immature Granulocyte Percent A 0.4 % (0-0.5); Lymphocytes Absolute Auto 1.65 K/mm3 (0.9-3.2); Lymphocytes Percent Auto 30.3 % (18.3-44.2); Mean Corpuscular HGB Conc 33.7 g/dl (32-36); Mean Platelet Volume 10.2 fl (7.4-10.4); Monocytes Absolute Auto 0.5 K/mm3 (0.1-0.6); Monocytes Percent Auto 9.5 % (2.6-8.5); Neutrophils Percent Auto 54.9 % (45.5-73.1); Platelet Count Result 165 k/mm3 (150-375); White Blood Count 5.5 K/mm3 (4.5-10.0)
[2022-02-19 09:08] LABS: Urine Cotinine NEGATIVE
[2022-02-19 09:09] LABS: Albumin Level 4.2 g/dL (3.5-5.1); Anion Gap 5 mmol/L (8-16); Blood Urea Nitrogen 17 mg/dL (9-20); Calcium 9.1 mg/dL (8.4-10.2); Carbon Dioxide 25 mmol/L (22-30); Chloride 108 mmol/L (98-107); Estimated Glomerular Filt Rate > 60; Glucose 98 mg/dL (65-110); Potassium 4.2 mmol/L (3.4-5.0); Sodium 138 mmol/L (137-145)
== END 2022-02-19 08:25 | disposition home or self-care (01) ==
LOC: ANHSURGERY 08:29
PROVIDERS: PCP Family Medicine; Visit Provider Orthopaedic Surgery
DX: Z01.818 Encounter for other preprocedural examination (principal); M17.11 Unilateral primary osteoarthritis, right knee
CPT/HCPCS: 80048; 80307; 82040; 85025; 87070

== ENCOUNTER 2022-03-06 00:33 | Day surgery (SDC) | payer MEDICARE, SELFPAY ==
[2021-12-27 08:12] VITALS: BMI 38.5
--- NOTE | 2021-12-27 08:35 | PC.NURSE ---
Report to the Outpatient Waiting Room, entrance under the green pavilion located off [facility], at time __1000 on date __01/09/22 . OR Time: __1200 . - You and your visitor will be asked a series of questions to screen for COVID 19 for your protection. - Only one visitor is allowed at this time. - The patient visitor is requested to leave or wait in car when not with patient. - A mask is required within the hospital. Patients may have clear liquids (water, carbonated beverages, clear teas, apple juice) until 3 hours prior to surgery with a maximum of 20 ounces. - No food from midnight until time of surgery - Infants may have breast milk until 4 hours before surgery, infant formula 6 hours prior to surgery. - Children will be allowed to drink immediately following surgery. If applicable, please bring a bottle or sippy cup to assist with drinking. Juice, water, soda, and popsicles are readily available. For infants on formula, please bring formula the day of surgery. Pacifiers are allowed. Take the following medications with a SIP of water the morning of surgery: ___HYDRALAZINE Medications to discontinue per physician __PT STATES ALL VITAMINS AND SUPPLEMENTS/IBUPROFEN 7 DAYS PRE OP PER DR MOTLEY Date to take last dose___01/01/22 Please no make-up, nail greenlandic, hairspray, perfume, deodorant, or body powder the day of surgery. No jewelry (including any body piercings) or valuables the day of surgery, leave them at home. Please take a shower or bath the night before, or the morning of, surgery with an antibacterial soap. Wear comfortable, loose fitting clothing. Children are encouraged to wear pajamas. - Jewelry must be removed prior to entering the operating room. Rings and piercings that are not removed may be cut off. - The hospital will not accept responsibility for valuables. - Please leave all valuables, including medications, at home the day of surgery. TOTAL JOINT CLASS 01/02/22 If you are going home after surgery, a licensed bull driver must drive you home. - NO public transportation without another adult. - We recommend that an adult stay with you for 24 hours following discharge. - We also recommend that you do not drive, make important decision, drink alcoholic beverages, or take any drugs that were not prescribed by your health care provider for at least 24 hours after your discharge time. For Pediatric surgeries, we recommend two adults accompany the child home (only one inside the building at this time). Follow any additional instructions given to you from your surgeon. If you or anyone in your household have experienced Covid symptoms in the past week, please notify your surgeon or the nurse liaison at the phone number below for possible testing. VERBAL AND WRITTEN instructions given to __PATIENT and asked if any additional questions and then verbalized understanding. Patient advised to call surgeon office or pre surgery nurse liaison [phone] if any additional questions.
[2021-12-27 09:00] VITALS: BP 138/84; PULSE 51; RESP 18; TEMP 36.9; O2SAT 98
--- NOTE | 2022-01-10 09:01 | PC.NURSE ---
Report to the Outpatient Waiting Room, entrance under the green pavilion located off [facility], at time __0600 on date __01/21/22 . OR Time: . - You and your visitor will be asked a series of questions to screen for COVID 19 for your protection. - Only one visitor is allowed at this time. - The patient visitor is requested to leave or wait in car when not with patient. - A mask is required within the hospital. Patients may have clear liquids (water, carbonated beverages, clear teas, apple juice) until 3 hours prior to surgery with a maximum of 20 ounces. - No food from midnight until time of surgery - Infants may have breast milk until 4 hours before surgery, infant formula 6 hours prior to surgery. - Children will be allowed to drink immediately following surgery. If applicable, please bring a bottle or sippy cup to assist with drinking. Juice, water, soda, and popsicles are readily available. For infants on formula, please bring formula the day of surgery. Pacifiers are allowed. Take the following medications with a SIP of water the morning of surgery: ____HYDRALAZINE Medications to discontinue per physician ____PT STATES ALL VITAMINS AND SUPPLEMENTS/IBUPROFEN 7 DAYS PRE OP PER DR MOTLEY Date to take last dose___01/13/22 Please no make-up, nail latvian, hairspray, perfume, deodorant, or body powder the day of surgery. No jewelry (including any body piercings) or valuables the day of surgery, leave them at home. Please take a shower or bath the night before, or the morning of, surgery with an antibacterial soap. Wear comfortable, loose fitting clothing. Children are encouraged to wear pajamas. - Jewelry must be removed prior to entering the operating room. Rings and piercings that are not removed may be cut off. - The hospital will not accept responsibility for valuables. - Please leave all valuables, including medications, at home the day of surgery. TOTAL JOINT CLASS 01/16/22 @ 10 AM If you are going home after surgery, a licensed package car driver must drive you home. - NO public transportation without another adult. - We recommend that an adult stay with you for 24 hours following discharge. - We also recommend that you do not drive, make important decision, drink alcoholic beverages, or take any drugs that were not prescribed by your health care provider for at least 24 hours after your discharge time. For Pediatric surgeries, we recommend two adults accompany the child home (only one inside the building at this time). Follow any additional instructions given to you from your surgeon. If you or anyone in your household have experienced Covid symptoms in the past week, please notify your surgeon or the nurse liaison at the phone number below for possible testing. Telephone instructions given to and asked if any additional questions and then verbalized understanding. Patient advised to call surgeon office or pre surgery nurse liaison [phone] if any additional questions.
--- NOTE | 2022-01-10 09:03 | PC.NURSE ---
12/29/21 HOME COVID TEST-POSITIVE COUGH,FATIGUE AND NASAL CONGESTION. STATES NO OTHER CHANGE IN HEALTH HX SINCE LAST INTERVIEW ON 12/27/21
--- NOTE | 2022-02-13 14:42 | PC.NURSE ---
Report to the Outpatient Waiting Room, entrance under the green pavilion located off [facility], at time _1000 on date __03/06/22 . OR Time: ___1200 . - You and your visitor will be asked a series of questions to screen for COVID 19 for your protection. - Only one visitor is allowed at this time. - The patient visitor is requested to leave or wait in car when not with patient. - A mask is required within the hospital. Patients may have clear liquids (water, carbonated beverages, clear teas, apple juice) until 3 hours prior to surgery with a maximum of 20 ounces. - No food from midnight until time of surgery - Infants may have breast milk until 4 hours before surgery, infant formula 6 hours prior to surgery. - Children will be allowed to drink immediately following surgery. If applicable, please bring a bottle or sippy cup to assist with drinking. Juice, water, soda, and popsicles are readily available. For infants on formula, please bring formula the day of surgery. Pacifiers are allowed. Take the following medications with a SIP of water the morning of surgery: __HYDRALAZINE Medications to discontinue per physician ___IBUPROFEN/ALL VITAMINS AND SUPPLEMENTS 7 DAYS PRE OP PER DR MOTLEY Date to take last dose___02/26/22 Please no make-up, nail portuguese, hairspray, perfume, deodorant, or body powder the day of surgery. No jewelry (including any body piercings) or valuables the day of surgery, leave them at home. Please take a shower or bath the night before, or the morning of, surgery with an antibacterial soap. Wear comfortable, loose fitting clothing. Children are encouraged to wear pajamas. - Jewelry must be removed prior to entering the operating room. Rings and piercings that are not removed may be cut off. - The hospital will not accept responsibility for valuables. - Please leave all valuables, including medications, at home the day of surgery. If you are going home after surgery, a licensed [employer] flatbed driver must drive you home. - NO public transportation without another adult. - We recommend that an adult stay with you for 24 hours following discharge. - We also recommend that you do not drive, make important decision, drink alcoholic beverages, or take any drugs that were not prescribed by your health care provider for at least 24 hours after your discharge time. For Pediatric surgeries, we recommend two adults accompany the child home (only one inside the building at this time). Follow any additional instructions given to you from your surgeon. If you or anyone in your household have experienced Covid symptoms in the past week, please notify your surgeon or the nurse liaison at the phone number below for possible testing. Telephone instructions given to ___PATIENT and asked if any additional questions and then verbalized understanding. Patient advised to call surgeon office or pre surgery nurse liaison [phone] if any additional questions.
[2022-02-13 14:50] VITALS: BMI 37.6
--- NOTE | 2022-02-13 14:54 | PC.NURSE ---
PT STATES NO CHANGE IN HEALTH HX SINCE LAST INTERVIEW
--- NOTE | 2022-03-04 12:35 | PM.IMHP ---
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 He has been dealing with pain in this knee for and a. He has had previous knee arthroscopies done to the knee. He has had physical therapy as well in the past. He does not take anti-inflammatories due to history of hypertension. Patient has severe patellofemoral osteoarthritis as well as moderate lateral and medial compartment osteoarthritis. He has reached a point where he feels he is ready proceed with total knee arthroplasty rather continuing nonsurgical treatment. [facility] Past Medical History Medical History Fistula HLD (hyperlipidemia) Hypertension Normal colonoscopy (~2017) repeat in 5 years 07/27/18 Prostatic hypertrophy Urinary incontinence Surgical History Surgical History H/O lateral meniscus repair of left knee H/O lateral meniscus repair of right knee History of tonsillectomy S/P TURP (status post transurethral resection of prostate) Family History Family History Other Unknown family medical history Social History Social History Smoking status: Never smoker Second hand tobacco smoke exposure: No Additional smoking assessment comments: DENIES ANY FORM OF TOBACCO USE Alcohol intake: current Alcohol use details: 2 DRINKS PER MONTH Substance use: never Substance use type: does not use Additional living arrangements comments: 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ion Instructions Recorded Confirmed Type omega-3 fatty acids-fish oil 300 1 cap PO HS 07/14/19 02/13/22 History mg-500 mg capsule (Fish Oil) fluticasone propionate 50 1 spray intranasal PRN PRN allergy 07/19/19 02/13/22 History mcg/actuation nasal symptoms spray,suspension (Allergy Relief (fluticasone)) multivitamin 1 tablet PO DAILY 07/19/19 02/13/22 History cholecalciferol (vitamin D3) 25 25 mcg PO DAILY 05/25/20 02/13/22 History mcg (1,000 unit) capsule cetirizine 10 mg tablet (Zyrtec) 10 mg PO PRN PRN SEASONAL ALLERGIES 02/20/21 02/13/22 History ibuprofen 200 mg capsule 400 mg PO BID PRN Pain 08/16/21 02/13/22 History quinapril 20 1 tablet PO QAM #90 tabs 10/21/21 02/13/22 Rx mg-hydrochlorothiazide 25 mg tablet magnesium 250 mg tablet 250 mg PO DAILY 12/27/21 02/13/22 History silodosin 4 mg capsule 4 mg PO QAM 12/27/21 02/13/22 History hydralazine 25 mg tablet 25 mg PO BID 01/11/22 02/13/22 History Allergies Allergy/AdvReac Type Severity Reaction Status Date / Time pseudoephedrine Allergy Unknown Hypertensio Verified 02/13/22 14:29 n Exam Narrative: 66-year-old male alert and pleasant. He is 5 ft 11 and 278 lb, his BMI is 30.8. He has normal sensation right lower extremity. 2+ posterior artery and 1+ dorsalis pedis pulse palpable. 1+ edema in both calves. He wears support hose for the edema in his legs. Right knee range motion is from 7-130 degrees. Some large effusion. No redness or warmth about the knee. Hip range motion is full without discomfort. Negative Stinchfield maneuver. Normal quad strength. Resp: Auscultation: clear to auscultation bilaterally Cardio: Rate: regular rate Rhythm: regular rhythm Assessment and Plan Assessment and plan (1) Right knee DJD: Code(s): M17.11 - Unilateral primary osteoarthritis, right knee Status: Acute Plan 66-year-old male who has advanced patellofemoral osteoarthritis as well as moderate medial and lateral
--- NOTE | 2022-03-05 13:41 | WPDANESEPPF ---
Anes - Initial Pre Proc Eval Procedure: Operation Date: 03/06/22 12:00 Proposed Procedures p Right Total Knee Arthroplasty - Wes Osorio MD Date/Time: 03/05/22 13:41 Surgeon: Wes Osorio MD Pre Op Diagnosis: oa right knee Patient Data Age: 66 Gender: M Height: 1.8 m Weight: 122.5 kg Last Vital Signs Temp 36.9 C 12/27/21 09:00 Pulse 51 L 12/27/21 09:00 Resp 18 12/27/21 09:00 BP 138/84 12/27/21 09:00 Pulse Ox 98 12/27/21 09:00 O2 Del Method Room Air 12/27/21 09:00 Allergies Allergy/AdvReac Type Severity Reaction Status Date / Time pseudoephedrine Allergy Unknown Hypertensio Verified 02/13/22 14:29 n Home Medications Medication Instructions Recorded Confirmed Type omega-3 fatty acids-fish oil 300 1 cap PO HS 07/14/19 02/13/22 History mg-500 mg capsule (Fish Oil) fluticasone propionate 50 1 spray intranasal PRN PRN allergy 07/19/19 02/13/22 History mcg/actuation nasal symptoms spray,suspension (Allergy Relief (fluticasone)) multivitamin 1 tablet PO DAILY 07/19/19 02/13/22 History cholecalciferol (vitamin D3) 25 25 mcg PO DAILY 05/25/20 02/13/22 History mcg (1,000 unit) capsule cetirizine 10 mg tablet (Zyrtec) 10 mg PO PRN PRN SEASONAL ALLERGIES 02/20/21 02/13/22 History ibuprofen 200 mg capsule 400 mg PO BID PRN Pain 08/16/21 02/13/22 History quinapril 20 1 tablet PO QAM #90 tabs 10/21/21 02/13/22 Rx mg-hydrochlorothiazide 25 mg tablet magnesium 250 mg tablet 250 mg PO DAILY 12/27/21 02/13/22 History silodosin 4 mg capsule 4 mg PO QAM 12/27/21 02/13/22 History hydralazine 25 mg tablet 25 mg PO BID 01/11/22 02/13/22 History ECG: Date of Service: 08/20/21 Procedure(s): CA 12 lead EKG Accession Number(s): [id number] cc: ~ ? Measurements Intervals? [place]? Rate: ? 64 ? P:? -78 [place]: ? 310? QRS:? -7 QRSD: ? 91 ? T:? 27 QT: ? 412? QTc:? 427? Interpretive Statements SINUS OR ECTOPIC ATRIAL RHYTHM WITH SECOND DEGREE AV BLOCK, TYPE II EARLY PRECORDIAL R/S TRANSITION ABNORMAL ECG Electronically Signed On 08-20-2021 10:12:32 TERMINAL MANAGER by Barrera Chisholm D.O. Patient hx anesthesia problems: none Family hx anesthesia problems: none Results Review: All pre-operative results and documents have been reviewed as part of the pre-operative evaluation. [facility] Past Medical History Medical History (Updated 03/05/22 @ 13:42 by Tim Chapa MD) Fistula HLD (hyperlipidemia) Hypertension Normal colonoscopy (~2018) repeat in 5 years 07/27/18 Obesity Prostatic hypertrophy Urinary incontinence Surgical History Surgical History H/O lateral meniscus repair of left knee H/O lateral meniscus repair of right knee History of tonsillectomy S/P TURP (status post transurethral resection of prostate) Family History Family History Other Unknown family medical history Social History Social History Smoking status: Never smoker Second hand tobacco smoke exposure: No Additional smoking assessment comments: DENIES ANY FORM OF TOBACCO USE Alcohol intake: current Alcohol use details: 2 DRINKS PER MONTH Substance use: never Substance use type: does not use Living arrangements: with family Additional living arrangements comments: 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
[2022-03-06] VITALS (12 sets, daily range): BP systolic 116–164; BP diastolic 62–93; PULSE 51–82; RESP 16–18; TEMP 35.6–36.9; O2SAT 93–97
--- NOTE | ~2022-03-06 | XR_ITS ---
EXAMINATION: XR knee RT 2V DATE: 03/06/2022 16:28 INDICATION: Right knee arthroplasty. Postop. TECHNIQUE: 2 views of right knee were obtained. COMPARISON: None. FINDINGS: There is a total right knee arthroplasty in near-anatomic alignment. No fracture. There is gas in the soft tissues, consistent with recent surgery. IMPRESSION: 1. Total right knee arthroplasty in near-anatomic alignment. Reviewed, dictated and finalized at location A.
--- NOTE | ~2022-03-06 | XR_ITS ---
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 COMPARISON: 01/30/2009. FINDINGS: An intraoperative view demonstrates expected postsurgical changes during right knee arthro plasty. Vascular calcification. No unexpected radiopaque foreign body. IMPRESSION: No radiographic evidence of procedure related complication. Reviewed, dictated and finalized at location K.
[2022-03-06] MEDS: LACTATED RINGERS 1,000 ML 30 ML IV CONT ×2 (10:30→16:05)
[2022-03-06] MEDS: TRANEXAMIC ACID 1,000MG/ISO100 1,000 MG/100 ML BAG 200 MG IVPB (11:00)
[2022-03-06] MEDS: ACETAMINOPHEN 500 MG TABLET 1000 MG PO ×3 (11:00→23:48)
--- NOTE | 2022-03-06 11:45 | WPDHPUPDATE1 ---
History and Physical Update Update Date/Time: 03/06/22 11:45 History and Physical has been reviewed, including an updated exam of the patient. There are NO changes in the patient's condition. Risks, benefits, and alternatives have been discussed and questions answered. Patient agrees to proceed with procedure.
[2022-03-06] MEDS: ceFAZolin 3 GM/D5W 100 ML 100 ML IVPB (12:04)
[2022-03-06] MEDS: ceFAZolin SODIUM 1 GM VIAL 3 GM (12:54)
[2022-03-06] MEDS: GENTAMICIN BONE CEMENT REFOBACIN 1 EACH TOPICAL (12:55)
[2022-03-06] MEDS: TRANEXAMIC ACID 1,000 MG/10 ML AMPUL 1000 MG IV PUSH (14:46)
[2022-03-06] MEDS: ceFAZolin SODIUM 1 GM VIAL 2 GM IV PUSH (14:46)
--- NOTE | 2022-03-06 15:47 | W.PM.PROC2 ---
Procedure Note - Detailed Date of Procedure 03/06/22 Pre-op Diagnosis oa right knee Post-op Diagnosis Same Procedure Performed Right total knee arthroplasty Surgeon Wes Osorio MD Derrick [employer] Leverman hung [place] Description of Procedure Patient was brought to the operating room general anesthesia was measured. He received 3 g of Ancef weight based vancomycin and 1 g of tranexamic acid preoperatively. The right leg was prepped draped usual fashion. Limb was exsanguinated tourniquet elevated to 300 mmHg. A 7 in longitudinal midline incision was used and a vastus medialis splitting approach utilized splitting the vastus medialis at the superior pole of the patella. Infrapatellar set at and suprapatellar fat pads were excised the quadriceps synovectomy performed. He had extremely severe patellofemoral arthritis with prominent wear and bone loss in the lateral trochlear ridge in the lateral facet. The lateral facet was markedly scalloped and polished with eburnation. The calipers demonstrated that the thickness in the lateral facet inferior 2/3 was 10 mm. Far inferiorly lateral facet was down to 6 mm so there was extremely severe wear. I did not feel this was appropriate for patellar resurfacing his weight is 123 kg is tall so patellofemoral pressures would very high and risk fracture with resurfacing creating thin patella. We carefully contoured the patella. A lateral facetectomy was performed removing the lateral ask to fight and contouring the osteophytes circumferentially. Next a guide boris was inserted down the femoral canal after aspiration of canal contents using the 5 degree valgus cutting bushing 10 mm of bone removed the distal femur. Next the tibial plateau was cut. Prominent ossicle behind the patellar tendon insertion proximal to tibial tubercle made positioning of the tibial cutting guide a little bit difficult. A provisional cut was made we can see that the we were a little too shallow leaving cartilage posteriorly both medially and laterally the PCL was recessed and flexion gap was far too tight. An additional 3 mm of bone removed and tibial plateau. This was made perpendicular to the axis of the tibia. This got us just below the subchondral bone posteriorly at the lateral plateau in medial plateau. Bone quality was very good. This Koul remnants were excised. He had no malalignment in terms of varus valgus of the careful not to release the lateral capsule or the medial capsule from the tibia. At 90? the flexion gap medially was 8 flexion gap laterally was 12. There was wear on the posterior aspect of the lateral femoral condyle and we applied the sizing guide set at 5? of external rotation which matched Whitesides line exactly. Posterior referencing pinholes were placed. The femur looked wide enough for the size 72.5 vanguard femur and the anterior cut was made but it did not cut bone proximally enough on the trochlea and left the proximal portion of the trochlear flange of the implant quite proud. We immediately downsized to the size 70 and AP and chamfer cuts were made and this fit perfectly anterior to posteriorly. We trialed with the 10 mm CR insert. We had play in flexion but were too tight in extension. Additional 2 mm of bone removed the distal femur at this time. Chamfer cuts revisited. The tibia was sized to a size 79 which fit line to line posterolateral to anteromedial at the proper rotation. This was punched and we trialed with the 10 insert which had a barely positive bounce and extension a 2 mm of medial opening 1 mm lateral opening at 1 or 2? of flexion but in flexion it was a little bit loose. We trialed the 11 insert and this was more stable in flexion and had a slightly more positive bounce. At this point we removed an additional 1 mm of bone from the distal femur and applied the femoral trial removed posterior femoral osteophyte from the proximal aspects of the posterior femoral condyles. Central posterior capsular rele
[2022-03-06] MEDS: fentaNYL CITRATE INJ (*CRX) 100 MCG/2 ML VIAL 25 MCG IV PUSH ×4 (16:34→17:01)
[2022-03-06] MEDS: SODIUM CHLORIDE 0.9% IV 1,000 ML 125 ML IV CONT (17:57)
[2022-03-06] MEDS: oxyCODONE HCL (*CRX) 5 MG TAB IR PO ×2 (17:57→21:50)
[2022-03-06] MEDS: SENNA/DOCUSATE SODIUM TABLET 2 TAB PO (18:11)
--- NOTE | 2022-03-06 18:21 | PM.IMCN ---
Assessment and Plan Assessment and plan (1) Right knee DJD: Code(s): M17.11 - Unilateral primary osteoarthritis, right knee Status: Acute (2) Hypertension: Qualifiers: Hypertension type: essential hypertension Qualified Code(s): I10 - Essential (primary) hypertension Code(s): I10 - Essential (primary) hypertension Status: Acute Plan 66 year old male who was admitted elective right total knee replacement, POD#0 1)Post op care as per primary team 2)pain control, PT/OT, DVT ppx as per primary team 3)Hold antihypertensives for now 4)labs in AM 5)Zofran for nausea 6)D/c plan as per primary team Thank you for the consult. Will follow along the hospital course HPI Data of Consult Consult date: 03/06/22 Requesting Physician: Wes Osorio MD Primary Care Provider: Cordelia Persaud MD Consult Narrative Reason for consult: medical management Narrative: Ammon Larson is a 66 year old male who was admitted elective right total knee replacement. C/o nausea postoperatively. Denies any pain at surgical site. last BM this morning. Non smoker. Review of Systems Review of Systems: All systems reviewed & are unremarkable except as noted in HPI and below Constitutional: Constitutional: Reports fatigue Eyes: Eyes: Reports no additional eye complaints ENT: Reports system reviewed and no additional complaints, except as documented Cardiovascular: Cardiovascular: Reports no additional cardiovascular complaints Respiratory: Respiratory: Reports no additional respiratory complaints Gastrointestinal: Gastrointestinal: Reports nausea Integumentary/Breasts: Skin/Breast: Reports system reviewed and no additional complaints, except as docu Neurologic: Reports system reviewed and no additional complaints, except as documented [facility] Past Medical History Medical History Fistula HLD (hyperlipidemia) Hypertension Normal colonoscopy (~2018) repeat in 5 years 07/27/18 Obesity Prostatic hypertrophy Urinary incontinence Surgical History Surgical History H/O lateral meniscus repair of left knee H/O lateral meniscus repair of right knee History of tonsillectomy S/P TURP (status post transurethral resection of prostate) Family History Family History Other Unknown family medical history Social History Social History Smoking status: Never smoker Second hand tobacco smoke exposure: No Additional smoking assessment comments: DENIES ANY FORM OF TOBACCO USE Alcohol intake: current Alcohol use details: 2 DRINKS PER MONTH Substance use: never Substance use type: does not use Living arrangements: with family Additional living arrangements comments: 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ion Instructions Recorded Confirmed Type omega-3 fatty acids-fish oil 300 1 cap PO HS 07/14/19 03/06/22 History mg-500 mg capsule (Fish Oil) fluticasone propionate 50 1 spray intranasal PRN PRN allergy 07/19/19 03/06/22 History mcg/actuation nasal symptoms spray,suspension (Allergy Relief (fluticasone)) multivitamin 1 tablet PO DAILY 07/19/19 03/06/22 History cholecalciferol (vitamin D3) 25 25 mcg PO DAILY 05/25/20 03/06/22 History mcg (1,000 unit) capsule cetirizine 10 mg tablet (Zyrtec) 10 mg PO PRN PRN SEASONAL ALLERGIES 02/20/21 03/06/22 History ibuprofen 200 mg capsule 400 mg PO BID PRN Pain 08/16/21 03/06/22 History quinapril 20 1 tablet PO QAM #90 tabs 10/21/21 03/06/22 Rx mg-hydrochlorothiazide 25 mg tablet magnesium 250 mg tablet 250 mg PO DA
--- NOTE | 2022-03-06 18:28 | PC.NURSE ---
This patient, Ammon Larson, was admitted to Medical Room 347-. Patient/family oriented to hospital policies and general routines including ID bracelet, bed and alarms, visiting hours, pain management, procedures, bathroom and other care routines, personal items, smoking policy, room service/diet, and visiting hours. Information on how to activate the Rapid Response Team has been discussed. Patient/Family are encouraged to report perceived risks to care and to ask questions if they do not understand what they are told or what they should do.
[2022-03-06] MEDS: ONDANSETRON INJ 4 MG/2 ML VIAL IV PUSH (18:41)
[2022-03-07] MEDS: oxyCODONE HCL (*CRX) 5 MG TAB IR PO ×4 (01:53→17:26)
[2022-03-07] MEDS: ONDANSETRON INJ 4 MG/2 ML VIAL IV PUSH (04:19)
[2022-03-07 05:40] LABS: Basophils Percent Auto 0.1 % (0.2-1.2); Hematocrit 38.8 % (42.0-52.0); Hemoglobin 13.5 g/dL (14.0-18.0); Immature Granulocyte Absolute 0.04 K/mm3 (0.00-0.031); Immature Granulocyte Percent A 0.4 % (0-0.5); Lymphocytes Absolute Auto 0.95 K/mm3 (0.9-3.2); Lymphocytes Percent Auto 9.4 % (18.3-44.2); Mean Corpuscular HGB Conc 34.8 g/dl (32-36); Mean Corpuscular Hemoglobin 31.4 pg (26-34); Mean Corpuscular Volume 90.2 fl (80-100); Mean Platelet Volume 9.8 fl (7.4-10.4); Monocytes Absolute Auto 1.2 K/mm3 (0.1-0.6); Monocytes Percent Auto 11.9 % (2.6-8.5); Neutrophils Absolute Auto 7.9 K/mm3 (1.3-6.7); Neutrophils Percent Auto 78.2 % (45.5-73.1); Platelet Count Result 145 k/mm3 (150-375); Red Cell Distribution Width 13.1 % (11.5-14.5); White Blood Count 10.1 K/mm3 (4.5-10.0)
[2022-03-07 05:46] VITALS: BP 143/70; PULSE 71; RESP 16; TEMP 36.8; O2SAT 99
[2022-03-07 05:53] LABS: Anion Gap 6 mmol/L (8-16); Blood Urea Nitrogen 16 mg/dL (9-20); Calcium 8.5 mg/dL (8.4-10.2); Carbon Dioxide 24 mmol/L (22-30); Chloride 99 mmol/L (98-107); Estimated CRCL calculation 92 ml/min; Estimated Glomerular Filt Rate > 60; Glucose 148 mg/dL (65-110); Potassium 4.2 mmol/L (3.4-5.0); Sodium 129 mmol/L (137-145)
--- NOTE | 2022-03-07 06:41 | PM.PNORT ---
Subjective Subjective Date/Time Seen: 03/07/22 06:41 Review of Systems Review of Systems: POD 1 avss , pt unable to urinate over night, straight cath this morn with 1200cc out, hx prostate problems, will consult Dr Lang, dressing is dry, pt having some nausea ,no vomiting, pt concerned it is from pain med, will see how pt does today with pain meds after eating, will have pt work with PT today and assess how he is doing this afternoon with regards to pain control and ability to urinate, if improves then will plan to send home this afternoon, may need to keep if issues with urination Objective Data Vital Signs Vital Signs: Vital Signs - 24 hr 03/06/22 11:00 03/06/22 16:20 03/06/22 16:05 Temperature 36.9 C 36.8 C Pulse Rate 54 L 76 82 Respiratory Rate 18 18 18 Blood Pressure 164/88 H 137/77 148/93 H Pulse Oximetry 95 96 94 Oxygen Delivery Room Air Simple Face Mask Simple Face Mask Oxygen Flow Rate 8 8 03/06/22 16:35 03/06/22 16:50 03/06/22 17:05 Temperature Pulse Rate 69 65 62 Respiratory Rate 16 18 16 Blood Pressure 116/67 124/62 121/72 Pulse Oximetry 94 93 95 Oxygen Delivery Room Air Room Air Room Air Oxygen Flow Rate 03/06/22 17:19 03/06/22 17:35 03/06/22 17:50 Temperature 35.6 C L 36.4 C Pulse Rate 65 58 L 56 L Respiratory Rate 18 18 18 Blood Pressure 122/69 129/77 118/73 Pulse Oximetry 93 95 95 Oxygen Delivery Room Air Oxygen Flow Rate 03/06/22 18:20 03/06/22 20:03 03/06/22 23:53 Temperature 36.6 C 36.4 C L 36.3 C L Pulse Rate 71 51 L 65 Respiratory Rate 18 16 16 Blood Pressure 137/76 124/75 133/68 Pulse Oximetry 97 97 97 Oxygen Delivery Oxygen Flow Rate 03/07/22 05:46 Temperature 36.8 C Pulse Rate 71 Respiratory Rate 16 Blood Pressure 143/70 H Pulse Oximetry 99 Oxygen Delivery Oxygen Flow Rate Intake/Output Intake/Output: Intake & Output 03/04/22 03/05/22 03/06/22 03/07/22 23:59 23:59 23:59 23:59 Intake Total 875 250 Balance 875 250 Meds/Results Medications: Active Medications Generic Name Dose Route Start Last Admin Trade Name Freq PRN Reason Stop Dose Admin Acetaminophen 1,000 mg 03/06/22 18:00 03/06/22 23:48 Acetaminophen 500 Mg Tablet PO 1,000 mg Q6H SIRENA Administration Apixaban 2.5 mg 03/07/22 09:00 Apixaban 2.5 Mg Tablet PO 03/18/22 21:01 Q12HR [facility] Celecoxib 100 mg 03/07/22 08:00 Celecoxib 100 Mg Capsule PO DAILY@0800 [facility] Cephalexin HCl 500 mg 03/07/22 18:00 Cephalexin 500 Mg Capsule PO Q6HR [facility] Fluticasone Propionate 1 spray 03/06/22 17:20 Fluticasone Propionate 0.05% Na Spr 16 Gm Btl (*Bkc) NASAL PRN PRN allergy symptoms Hydralazine HCl 25 mg 03/07/22 09:00 Hydralazine Hcl 25 Mg Tablet PO Q12HR [facility] Cefazolin Sodium 1 gm in 50 mls @ 100 mls/hr 03/06/22 22:00 03/07/22 05:40 Ancef 1 Gm/D5w 50 Ml Pm IVPB 03/07/22 14:29 100 mls/hr Q8H SIRENA Administration Vancomycin HCl 1,000 mg in 250 mls @ 250 mls/hr 03/06/22 23:00 03/07/22 00:48 Vancomycin 1,000 Mg/D5w 250 Ml IVPB 03/07/22 11:59 Infused Q12H [facility] Infusion Loratadine 10 mg 03/06/22 17:20 Loratadine 10 Mg Tablet PO PRN PRN SEASONAL ALLERGIES Magnesium Gluconate 13.5 mg 03/07/22 09:00 Magnesium 13.5 Mg Tablet (250 Mg Mag Gluconate) PO 04/06/22 08:59 DAILY [facility] Miscellaneous Information 1 each 03/06/22 00:01 Silodosin 4 Mg Capsule Is Non Formulary Can Patient Use From Home? XX 04/05/22 00:00 CLARIFY SIRENA Morphine Sulfate 2 mg 03/06/22 17:20 Morphine Sulfate (*Crx) 2 Mg/Ml Inj IV PUSH Q1H PRN Pain Rated 7-10 Multivitamins Therapeutic 1 tablet 03/07/22 09:00 Multivitamins Therapeutic Tab (*Bkc) PO DAILY [facility] Naloxone HCl 0.1 mg 03/06/22 17:20 Naloxone Hcl 0.4 Mg/Ml Vial IV PUSH Q2M PRN Opiate Reversal Non-Formulary Medication 4 mg 03/07/22 09:00 Silodosin PO 04/06/22 08:59 QAM SIRENA Hi
[2022-03-07] MEDS: SENNA/DOCUSATE SODIUM TABLET 2 TAB PO ×2 (08:07→17:26)
[2022-03-07] MEDS: polyethylene glycoL 3350 17 GM POWD.PACK PO (08:07)
[2022-03-07] MEDS: CELECOXIB 100 MG CAPSULE PO (08:08)
[2022-03-07] MEDS: MAGNESIUM 13.5 MG TABLET (250 MG MAG GLUCONATE) PO (08:08)
[2022-03-07] MEDS: APIXABAN 2.5 MG TABLET PO (08:08)
[2022-03-07] MEDS: MULTIVITAMINS THERAPEUTIC TAB (*BKC) 1 TABLET PO (08:08)
[2022-03-07] MEDS: hydrALAZINE HCL 25 MG TABLET PO (08:08)
[2022-03-07] MEDS: CHOLECALCIFEROL 1,000 UNITS TABLET 1000 UNITS PO (08:08)
[2022-03-07] MEDS: TAMSULOSIN HCL 0.4 MG CAPSULE PO (11:48)
[2022-03-07] MEDS: lisinopriL 20 MG TABLET PO (11:48)
[2022-03-07] MEDS: hydroCHLOROthiazide 25 MG TABLET PO (11:48)
[2022-03-07] MEDS: ACETAMINOPHEN 500 MG TABLET 1000 MG PO ×2 (11:48→17:26)
--- NOTE | 2022-03-07 11:53 | WPDURCON ---
Assessment and Plan Assessment and plan (1) Urinary retention due to benign prostatic hyperplasia: Code(s): N40.1 - Benign prostatic hyperplasia with lower urinary tract symptoms; R33.8 - Other retention of urine Status: Acute Assessment and Plan: Catheter placed today d/t patient being unable to intermittent catheterize from recent surgery. He would like to go back to intermittent catheterization when able, we will keep garland in for one month and re-assess in the office. There is concern for a neurogenic bladder d/t multiple dilations and a TURP in the last six months. However, we will continue Flomax and do a voiding trial in the office to see if this resolves and is just a result of recent anesthesia. He requests the catheter for one month instead of one week so that he can proceed with rehab for his total knee replacement without worry of having to catheterize himself. Catheter inserted with 1000cc of clear yellow urine on return. 16fr catheter inserted without difficulty. No further assessment needed at this time. Urology Consult Note HPI Date Seen: 03/07/22 Time Seen: 11:54 Requesting Physician: Wes Osorio MD Primary Care Provider: Cordelia Persaud MD Consult Narrative Reason for consult: Retention Narrative: Ammon Larson is a 66 year old male who is s/p right total knee arthroplasty that was done yesterday with Dr. Osorio. He has been unable to urinate since surgery and has had one bladder scan with >1000cc of PVR and a straight cath this morning around 0600 which did shows 1500cc of PVR on return. The patient has a complicated urologic history and is a patient of Dr. Lang and myself. Most recently he had a TURP in 08/2021, then had difficulty with urination in 01/06 and had a cystoscopy with dilation in the office on 01/07/22 which was unsuccessful, therefore Dr. Lang elected to take him to the OR on 01/17/22 for a Cystoscopy with urethral dilation which was successful. He was urinating well prior to his knee surgery and intermittent catheterizing as needed. However, after surgery he has no desire to empty his bladder despite elevated residuals. Flomax has been restarted today, which he hasn't taken in many years. His creatinine is stable at 0.90, but he is unable to intermittent catheterize himself s/p knee surgery. Review of Systems Cardiovascular: Cardiovascular: Denies chest pain Respiratory: Respiratory: Reports no additional respiratory complaints Gastrointestinal: Gastrointestinal: Denies abdominal pain, Denies nausea and Denies vomiting Genitourinary: Comments: retention [facility] Past Medical History Medical History Fistula HLD (hyperlipidemia) Hypertension Normal colonoscopy (~2017) repeat in 5 years 07/27/18 Obesity Prostatic hypertrophy Urinary incontinence Surgical History Surgical History H/O lateral meniscus repair of left knee H/O lateral meniscus repair of right knee History of tonsillectomy S/P TURP (status post transurethral resection of prostate) Family History Family History Other Unknown family medical history Social History Social History Smoking status: Never smoker Second hand tobacco smoke exposure: No Additional smoking assessment comments: DENIES ANY FORM OF TOBACCO USE Alcohol intake: current Alcohol use details: 2 DRINKS PER MONTH Substance use: never Substance use type: does not use Living arrangements: with family Additional living arrangements comments: 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
--- NOTE | 2022-03-07 11:57 | PM.IMPN ---
Progress Note: A&P Assessment and Plan (1) Right knee DJD: Code(s): M17.11 - Unilateral primary osteoarthritis, right knee Status: Acute (2) Hypertension: Qualifiers: Hypertension type: essential hypertension Qualified Code(s): I10 - Essential (primary) hypertension Code(s): I10 - Essential (primary) hypertension Status: Acute (3) Urinary retention due to benign prostatic hyperplasia: Code(s): N40.1 - Benign prostatic hyperplasia with lower urinary tract symptoms; R33.8 - Other retention of urine Status: Acute (4) Hyponatremia: Code(s): E87.1 - Hypo-osmolality and hyponatremia Status: Acute Plan 66 year old male who was admitted elective right total knee replacement, POD#1 1)Post op care as per primary team 2)pain control, PT/OT, DVT ppx as per primary team 3)Antihypertensives have been resumed today 4)Mild leucocytosis, will monitor, likely related to surgery 5)Mild Hyponatremia, will monitor, labs in AM 6)Zofran for nausea 7)Start on Flomax for urinary retention, Urology has been consulted by primary team 8)D/c plan as per primary team Will follow along the hospital course Time Spent With Patient Time with patient: 15 - 25 minutes Subjective Date/time seen: 03/07/22 11:57 Interval history: nausea resolved, but urinary retention overnight, had to be straight cath 2 times overnight Review of Systems Review of Systems: All systems reviewed & are unremarkable except as noted in HPI and below Constitutional: Constitutional: Reports fatigue Eyes: Eyes: Reports no additional eye complaints ENT: Reports system reviewed and no additional complaints, except as documented Cardiovascular: Cardiovascular: Reports no additional cardiovascular complaints Respiratory: Respiratory: Reports no additional respiratory complaints Gastrointestinal: Gastrointestinal: Reports nausea Integumentary/Breasts: Skin/Breast: Reports system reviewed and no additional complaints, except as docu Neurologic: Reports system reviewed and no additional complaints, except as documented Endocrine: Endocrine: Reports fatigue Exam Const: General: comfortable and no acute distress HENMT: Mouth: Yes moist mucous membranes Eyes: Sclera: sclerae normal Neck: Neck: supple Resp: Auscultation: clear to auscultation bilaterally Cardio: Rate: regular rate Rhythm: regular rhythm GI: Auscultation: normal bowel sounds Skin: General skin exam: normal color Neuro: Speech: normal speech Psych: Mental Status: mental status grossly normal Objective Data Vital Signs Vital Signs: Vital Signs - 24 hr 03/06/22 16:20 03/06/22 16:05 03/06/22 16:35 Temperature 98.2 F Pulse Rate 76 82 69 Respiratory Rate 18 18 16 Blood Pressure 137/77 148/93 H 116/67 Pulse Oximetry 96 94 94 Oxygen Delivery Simple Face Mask Simple Face Mask Room Air Oxygen Flow Rate 8 8 03/06/22 16:50 03/06/22 17:05 03/06/22 17:19 Temperature Pulse Rate 65 62 65 Respiratory Rate 18 16 18 Blood Pressure 124/62 121/72 122/69 Pulse Oximetry 93 95 93 Oxygen Delivery Room Air Room Air Room Air Oxygen Flow Rate 03/06/22 17:35 03/06/22 17:50 03/06/22 18:20 Temperature 96.0 F L 97.6 F 97.8 F Pulse Rate 58 L 56 L 71 Respiratory Rate 18 18 18 Blood Pressure 129/77 118/73 137/76 Pulse Oximetry 95 95 97 Oxygen Delivery Oxygen Flow Rate 03/06/22 20:03 03/06/22 23:53 03/07/22 05:46 Temperature 97.5 F L 97.4 F L 98.2 F Pulse Rate 51 L 65 71 Respiratory Rate 16 16 16 Blood Pressure 124/75 133/68 143/70 H Pulse Oximetry 97 97 99 Oxygen Delivery Oxygen Flow Rate 03/07/22 08:00 Temperature Pulse Rate Respiratory Rate Blood Pressure Pulse Oximetry Oxygen Delivery Room Air Oxygen Flow Rate Intake/Output Intake/Output: Intake & Output 03/04/22 03/05/22 03/06/22 03/07/22 23:59 23:59 23:59 23:59 Intake Total 875 600 Output Total 2049 Balance 8
[2022-03-07 14:00] VITALS: BP 128/60; PULSE 61; RESP 20; TEMP 37.1; O2SAT 92
--- NOTE | 2022-03-07 15:42 | PM.DS ---
DS: Admitting Diagnosis Discharge Date 03/07 Admitting Diagnosis right knee DJD DS: Discharge Diagnosis Discharge Diagnosis Plan 66-year-old male who underwent right total knee arthroplasty on 03/06. Underwent the procedure without complications. Postoperatively he has had some nausea with pain medication. This improved when the patient was eating prior to taking his medication. He did have urinary retention. He required straight catheterization which was done early on the morning of postop day 1. He had 1200 retention, patient had continued retention and needed to be casted again and had another 1100 cc out. At that point Garland catheter was placed. Urology was consulted. Patient does have a history with urology. He underwent dilation his urethra out approximately 6 weeks ago. Catheter is going to stay at this point for 2 weeks and he will follow up with Urology for a voiding trial at that time. Patient is on Celebrex 200 mg once a day. Pain is controlled with scheduled Tylenol as well as oxycodone 5 mg. He is on Eliquis for DVT prophylaxis. He is also on Senokot and MiraLax. He will be on Keflex for 2 weeks postoperatively. Patient was advised to keep leg elevated at home prevent swelling but he is to do his exercises on a regular basis. He has outpatient therapy starting next Friday. Patient's dressing is dry and intact. Neurovascularly he is intact. Patient was advised any questions or concerns he is to call the office otherwise we will see him at his appointed dates. DS: Summary Hospital Course Hospital Course: Stable Time Spent with Patient Time attestation: Total time spent providing and/or coordinating discharge services: DS: Data Data Completed and Pending Labs on day of discharge: Labs from last 24 hours 03/07/22 03/07/22 05:31 05:31 WBC 10.1 H RBC 4.30 L Hgb 13.5 L Hct 38.8 L MCV 90.2 MCH 31.4 MCHC 34.8 RDW 13.1 Plt Count 145 L MPV 9.8 Immature Gran % (Auto) 0.4 Neut % (Auto) 78.2 H Lymph % (Auto) 9.4 L [place] % (Auto) 11.9 H Eos % (Auto) 0.0 Baso % (Auto) 0.1 L Lymph # (Auto) 0.95 [place] # (Auto) 1.2 H Eos # (Auto) 0.0 Baso # (Auto) 0.0 Abs Immat Gran (auto) 0.04 H Absolute Neuts (auto) 7.9 H Absolute Nucleated RBC 0.0 Nucleated RBC % 0.0 Sodium 129 L Potassium 4.2 Chloride 99 Carbon Dioxide 24 Anion Gap 6 L BUN 16 Creatinine 0.90 Estim Creat Clear Calc 92 Estimated GFR > 60 Glucose 148 H Calcium 8.5 Discharge Plan Discharge Patient Disposition: Home, Self-Care Discharge Instructions: Urology Instructions: Keep garland in for one month while recovering from total knee surgery. Call the office to schedule a one month follow up for a voiding trial [phone]. Continue to take Flomax. Call the office if you develop symptoms of a UTI, blood in your urine with clots or a garland catheter that is not draining or go to the ER. JASON MOTLEY M.D [facility], [place] [address] [place] [id number] POST-OPERATIVE DISCHARGE INSTRUCTIONS TOTAL KNEE ARTHROPLASTY 1. When resting, lie on back with leg elevated above heart to minimize swelling. Significant swelling could indicate a blood clot and if this occurs call the office (or go to the ER) to have a venous ultrasound. 2. Do exercise 5 times a day. 3. Do not sit with leg down except for meals. Patient should limit sitting in the chair with leg pain down to 30 minutes at a time 3 times a day. Leg should be elevated on 3 pillows while patient is either in the bed or on the couch. Patient should not sit in a recliner. 4. Wound Care: Nursing will give additional dressings at discharge. Patient to change dressing at home 1 week from surgery, then maintain until seen in office. 5. May shower with dressing in place. . Patient Instructions: Apixaban (By mouth) Stand Alone Forms: General Dis
[2022-03-07] MEDS: CEPHALEXIN 500 MG CAPSULE PO (17:26)
== END 2022-03-07 17:57 | disposition home or self-care (01) ==
LOC: ANHSURGERY 09:49 → ANH3MED 17:35
PROVIDERS: PCP Family Medicine; Visit Provider Orthopaedic Surgery
PROC: (CPT 27447; principal; 2022-03-06 12:00)
DX: M17.11 Unilateral primary osteoarthritis, right knee (principal); N40.1 Benign prostatic hyperplasia with lower urinary tract symptoms; R33.8 Other retention of urine; E87.1 Hypo-osmolality and hyponatremia; I10 Essential (primary) hypertension; E78.5 Hyperlipidemia, unspecified
CPT/HCPCS: 27447; 36415; 73560; 80048; 85025; 86850; 86900; 86901; 97110; 97116; 97161; 97165; 97530; 97535; 99199; A9270; C1713; C1776; J0171; J0690; J1100; J1170; J2250; J2270; J2405; J2704; J2795; J3010; J3370; J7030; J7120

== ENCOUNTER 2022-09-28 08:19 | Emergency (ER) | payer MEDICARE, SELFPAY ==
--- NOTE | 2022-09-28 08:24 | ED.EYEPROB ---
HPI - Eye Problem General Chief complaint: Eye Problems Stated complaint: eye drainage Time Seen by Provider: 09/28/22 08:24 Source: patient and RN notes reviewed History of Present Illness HPI Narrative: Patient is a 66-year-old male who presents to urgent care with complaints of bilateral eye itchiness, drainage, redness. Patient states it started in the left eye yesterday and was severe this morning with both eyes completely matted. Patient denies any trauma or injury. States that he does not wear contacts. No other acute complaints. No acute distress noted. Patient aware of the plan of care. Some parts of this dictation were generated by voice recognition software and may contain typographical and/or grammatical inaccuracies. Related Data Home Medications Medication Instructions Recorded Confirmed fluticasone propionate 50 1 spray intranasal PRN PRN allergy 07/19/19 09/28/22 mcg/actuation nasal symptoms spray,suspension (Allergy Relief (fluticasone)) multivitamin 1 tablet PO DAILY 07/19/19 09/28/22 cholecalciferol (vitamin D3) 25 25 mcg PO DAILY 05/25/20 09/28/22 mcg (1,000 unit) capsule cetirizine 10 mg tablet (Zyrtec) 10 mg PO PRN PRN SEASONAL ALLERGIES 02/20/21 09/28/22 quinapril 20 mg tablet 20 mg PO DAILY 08/29/22 09/28/22 Allergies Allergy/AdvReac Type Severity Reaction Status Date / Time pseudoephedrine Allergy Unknown Hypertensio Verified 09/28/22 08:24 n Review of Systems Review of Systems: CONSTITUTIONAL: Denies fever, chills, or sweats. EYES: Reports discharge, drainage, redness and itchiness to bilateral eyes ENT: Denies rhinorrhea, congestion, sore throat, or otalgia. CARDIOVASCULAR: Denies chest pain, palpitations, or edema. RESPIRATORY: Denies cough or dyspnea. GASTROINTESTINAL: Denies abdominal pain, nausea, vomiting, or diarrhea. GENITOURINARY: Denies dysuria or hematuria. SKIN: Denies rash or itching. MUSCULOSKELETAL: Denies back pain, joint pain, or myalgia. NEUROLOGIC: Denies headache, numbness, or weakness. All other systems reviewed are negative, except as documented in HPI. [facility] Past Medical History Medical History Fistula HLD (hyperlipidemia) Hypertension Normal colonoscopy (~2018) repeat in 5 years 07/27/18 Obesity Prostatic hypertrophy Urinary incontinence Surgical History Surgical History H/O lateral meniscus repair of left knee H/O lateral meniscus repair of right knee History of tonsillectomy History of total right knee replacement S/P TURP (status post transurethral resection of prostate) Family History Family History Other Unknown family medical history Social History Social History (Updated 08/29/22 @ 09:06 by Esther [place] CMA) Smoking status: Never smoker Second hand tobacco smoke exposure: No Additional smoking assessment comments: DENIES ANY FORM OF TOBACCO USE Alcohol intake: current Alcohol use details: 2 DRINKS PER MONTH Substance use: never Substance use type: does not use Lack of Transportation: No Lack of Food: Never True Current Housing: I Have Housing Concerned About Future Housing: No Difficulty Paying Gas/Electric Bills: No Difficulty Paying for Meds: No Currently Unemployed: No Education: Master's Degree or Higher Difficulty w/ Childcare or Family Care: No Living arrangements: with family Additional living arrangements comments: Occupation/Education: retired 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
[2022-09-28 08:31] VITALS: BP 159/76; PULSE 48; RESP 16; TEMP 36.2; O2SAT 97
== END 2022-09-28 08:42 | disposition home or self-care (01) ==
PROVIDERS: Emergency Provider Nurse Practitioner Family; PCP Family Medicine
DX: H10.9 Unspecified conjunctivitis (principal); E78.5 Hyperlipidemia, unspecified; I10 Essential (primary) hypertension; E66.9 Obesity, unspecified; Z68.38 Body mass index [BMI] 38.0-38.9, adult; Z96.651 Presence of right artificial knee joint
CPT/HCPCS: 99213; G0463

== ENCOUNTER 2023-03-24 10:35 | Emergency (ER) | payer MEDICARE, SELFPAY ==
--- NOTE | ~2023-03-24 | CT_ITS ---
EXAMINATION: CT brain wo con DATE: 03/24/2023 11:12 INDICATION: Head injury. TECHNIQUE: Computed tomography (CT) of the head was performed without intravenous contrast. The mA wa s adjusted according to patient size. Iterative reconstruction technique was employed. The dose-lengt h product was 605.33 mGy-cm. COMPARISON: Head CT 06/17/2009 FINDINGS: There is no intracranial hemorrhage, acute infarction, or abnormal intracranial mass lesion . The ventricles are normal in size. There is a right frontal scalp hematoma. There is mild mucosal t hickening in the ethmoid sinuses. The mastoid air cells are normal. IMPRESSION: 1. Normal brain. Reviewed, dictated and finalized at location A. IMPRESSION: 1. Normal brain.
--- NOTE | ~2023-03-24 | XR_ITS ---
EXAMINATION: XR knee RT min 4V DATE: 03/24/2023 11:23 INDICATION: Medial right knee pain post fall TECHNIQUE: Anteroposterior, 2 oblique and crosstable lateral views of the right knee were obtained COMPARISON: None. FINDINGS: Right total knee arthroplasty without patellar resurfacing which appears well seated in near-anatomic alignment. No periprosthetic fracture or lucency to suggest loosening. There is an oblique nondispla otto fracture at the proximal diaphysis of the right fibula. Small right knee joint effusion without l ayering lipohemarthrosis. IMPRESSION: 1. Nondisplaced fracture at the proximal right fibular diaphysis. 2. Right total knee arthroplasty and small right knee joint effusion. Reviewed, dictated and finalized at location B.
--- NOTE | ~2023-03-24 | XR_ITS ---
EXAMINATION: XR tibia fibula RT 2V DATE: 03/24/2023 12:15 INDICATION: Right knee pain with proximal right fibular fracture. Assess for fracture in the more dis jan right lower leg. TECHNIQUE: AP and lateral views of the right tibia and fibula were obtained on overlapping proximal a nd distal images. COMPARISON: Right knee and ankle radiographs dated 03/24/2023 FINDINGS: Right total knee arthroplasty without patellar resurfacing which appears well seated in near-anatomic alignment. Again seen is a nondisplaced oblique fracture. Proximal neck of the right fibula. No frac tures in the more distal tibia or fibula or at the visualized aspect of the posterior/. Tiny heteroto pic ossicle near the tip of the lateral malleolus likely sequela of chronic lateral ankle sprain. Mil d soft tissue swelling about the distal lower leg and ankle. No ankle joint effusion. IMPRESSION: 1. Isolated nondisplaced fracture of the proximal right fibular diaphysis. No other fractures identif ied. Reviewed, dictated and finalized at location B. IMPRESSION: 1. Isolated nondisplaced fracture of the proximal right fibular diaphysis. No o ther fractures identified.
--- NOTE | ~2023-03-24 | XR_ITS ---
EXAMINATION: XR ankle RT min 3V DATE: 03/24/2023 11:23 INDICATION: Right ankle pain and swelling. TECHNIQUE: 4 views of right ankle were obtained. COMPARISON: None. FINDINGS: Bone alignment is normal. There is a small fragment of ossification distal to medial malleo jareth. There is chronic heterotopic ossification distal to lateral malleolus. There is severe midfoot o steoarthritis and mild ankle joint osteoarthritis. There are enthesophytes at the posterior and plant ar aspects of calcaneal tuberosity. Ankle soft tissue swelling is noted. IMPRESSION: 1. Small fragment of ossification distal to medial malleolus, which may be an acute avulsion fracture or a chronic finding. 2. Polyarticular osteoarthritis. Reviewed, dictated and finalized at location A. IMPRESSION: 1. Small fragment of ossification distal to medial malleolus, which may be an a cute avulsion fracture or a chronic finding. 2. Polyarticular osteoarthritis.
--- NOTE | ~2023-03-24 | CT_ITS ---
EXAMINATION: CT cervical spine wo con DATE: 03/24/2023 11:12 INDICATION: Head injury. TECHNIQUE: Computed tomography (CT) of the cervical spine was performed without intravenous contrast. Automated exposure control and iterative reconstruction technique were employed. The dose-length pro duct was 459.34 mGy-cm. COMPARISON: None FINDINGS: There is 6 degrees dextrocurvature of cervical spine. Vertebral body heights are normal. Th ere is mildly decreased disc height at C5-C6 and C6-C7. The following disc levels are specifically di scussed: C2-C3: There is moderate right and mild left uncovertebral joint osteoarthritis. There is mild bilate ral facet joint osteoarthritis. There is no neural foraminal stenosis. There is no central canal sten osis. C3-C4: There is severe bilateral uncovertebral joint osteoarthritis. There is severe bilateral facet joint osteoarthritis. There is mild left neural foraminal stenosis. There is no central canal stenosi s. C4-C5: There is mild bilateral uncovertebral joint osteoarthritis. There is severe bilateral facet donte int osteoarthritis. There is mild bilateral neural foraminal stenosis. There is mild central canal st enosis. C5-C6: There is mild bilateral uncovertebral joint osteoarthritis. There is mild bilateral facet join t osteoarthritis. There is no neural foraminal stenosis. There is mild central canal stenosis. C6-C7: There is no uncovertebral joint osteoarthritis. There is mild bilateral facet joint osteoarthr itis. There is no neural foraminal stenosis. There is no central canal stenosis. C7-T1: There is no uncovertebral joint osteoarthritis. There is severe right and mild left facet join t osteoarthritis. There is mild right neural foraminal stenosis. There is no central canal stenosis. IMPRESSION: 1. No fracture. 2. Mild cervical spondylosis. Reviewed, dictated and finalized at location A.
[2023-03-24 10:44] VITALS: BP 173/95; PULSE 78; RESP 20; TEMP 36.3; O2SAT 98
[2023-03-24] MEDS: ACETAMINOPHEN 500 MG TABLET 1000 MG PO (11:01)
--- NOTE | 2023-03-24 11:05 | ED.LOWEXIN ---
HPI - Extremity Injury (Lower) General Chief Complaint: Extremity Injury, Lower Stated Complaint: LE injury Time Seen by Provider: 03/24/23 10:39 Source: patient and EMS Mode of arrival: ambulatory Limitations: no limitations History of Present Illness HPI Narrative: Patient is a 67 y/o male who presents to the ED with c/o a fall. Patient reports he was getting ready for a swim at the [facility] [place] this morning when he slipped on water and fell. He states his R knee spread outward and twisted awkwardly. He c/o pain to his R knee and R ankle. He notes he had his R knee replaced by Dr. Osorio 1 year ago. Patient did also hit his head in the fall and sustained a hematoma to his R forehead. Denied any LOC. Denies any dizziness/LH, nausea/vomiting, vision changes, neck pain, back pain. He is not on any blood thinners. He was able to ambulate after the incident. EMS evaluated patient on scene however he refused EMS transport. Related Data Home Medications Medication Instructions Recorded Confirmed fluticasone propionate 50 1 spray intranasal PRN PRN allergy 07/19/19 02/20/23 mcg/actuation nasal symptoms spray,suspension (Allergy Relief (fluticasone)) multivitamin 1 tablet PO DAILY 07/19/19 02/20/23 cholecalciferol (vitamin D3) 25 25 mcg PO DAILY 05/25/20 02/20/23 mcg (1,000 unit) capsule cetirizine 10 mg tablet (Zyrtec) 10 mg PO PRN PRN SEASONAL ALLERGIES 02/20/21 02/20/23 Allergies Allergy/AdvReac Type Severity Reaction Status Date / Time pseudoephedrine Allergy Unknown Hypertensio Verified 02/20/23 15:34 n Review of Systems Review of Systems: CONSTITUTIONAL: Denies fever, chills, or sweats. EYES: Denies visual changes. CARDIOVASCULAR: Denies chest pain. RESPIRATORY: Denies dyspnea. GASTROINTESTINAL: Denies abdominal pain, nausea, vomiting. MUSCULOSKELETAL: See HPI. NEUROLOGIC: See HPI. All systems reviewed & are unremarkable except as noted in HPI and below PMFSH Past Medical History Medical History Fistula HLD (hyperlipidemia) Hypertension Normal colonoscopy (~2017) repeat in 5 years 07/27/18 Obesity Prostatic hypertrophy Urinary incontinence Surgical History Surgical History H/O lateral meniscus repair of left knee H/O lateral meniscus repair of right knee History of tonsillectomy History of total right knee replacement S/P TURP (status post transurethral resection of prostate) Family History Family History Other Unknown family medical history Social History Social History Smoking status: Never smoker Second hand tobacco smoke exposure: No Additional smoking assessment comments: DENIES ANY FORM OF TOBACCO USE Alcohol intake: current Alcohol use details: 2 DRINKS PER MONTH Substance use: never Substance use type: does not use Lack of Transportation: No Lack of Food: Never True Current Housing: I Have Housing Concerned About Future Housing: No Difficulty Paying Gas/Electric Bills: No Difficulty Paying for Meds: No Currently Unemployed: No Education: Master's Degree or Higher Difficulty w/ Childcare or Family Care: No Living arrangements: with family Additional living arrangements comments: Occupation/Education: retired 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 HEAD: Normocephalic. Contusion/hematoma to right forehead, tender to palpation. Circular suction cup marking to for
[2023-03-24 11:59] VITALS: BP 152/87; O2SAT 96
[2023-03-24 12:01] VITALS: BP 158/88; O2SAT 96
[2023-03-24] MEDS: KETOROLAC 30 MG/ML VIAL (*BKC) IM (13:16)
[2023-03-24 13:21] VITALS: BP 163/96; O2SAT 97
[2023-03-24 13:30] VITALS: BP 164/85; O2SAT 97
== END 2023-03-24 14:46 | disposition home or self-care (01) ==
PROVIDERS: Emergency Provider Physician Assistant; PCP Family Medicine
DX: S82.51XA Displaced fracture of medial malleolus of right tibia, initial encounter for closed fracture (principal); S82.831A Other fracture of upper and lower end of right fibula, initial encounter for closed fracture; S00.03XA Contusion of scalp, initial encounter; I10 Essential (primary) hypertension; E78.5 Hyperlipidemia, unspecified; W01.0XXA Fall on same level from slipping, tripping and stumbling without subsequent striking against object, initial encounter; Y92.34 Swimming pool (public) as the place of occurrence of the external cause
CPT/HCPCS: 29505; 70450; 72125; 73564; 73590; 73610; 96372; 99284; A9270; J1885

== ENCOUNTER 2023-03-26 11:40 | Outpatient (CLI) | payer MEDICARE, SELFPAY ==
--- NOTE | ~2023-03-26 | US_ITS ---
EXAMINATION: US venous doppler LE RT DATE: 03/26/2023 12:28 INDICATION: Right lower limb pain and swelling. TECHNIQUE: Grayscale ultrasound images without and with compression and Doppler ultrasound images of the right lower extremity veins were obtained. COMPARISON: None. FINDINGS: The visualized portions of right common femoral vein, profunda (deep) femoral vein, femoral vein, pop liteal vein, peroneal veins, posterior tibial veins, and greater saphenous vein outflow are patent. IMPRESSION: 1. No deep venous thrombosis. Reviewed, dictated and finalized at location A.
== END 2023-03-26 11:41 | disposition home or self-care (01) ==
PROVIDERS: PCP Family Medicine; Visit Provider Orthopaedic Surgery
DX: M79.89 Other specified soft tissue disorders (principal)
CPT/HCPCS: 36415; 80048; 93005; 93971

== ENCOUNTER 2023-03-26 13:09 | Outpatient (CLI) | payer MEDICARE, SELFPAY ==
--- NOTE | 2023-03-26 13:28 | ECG_ITS ---
Measurements Intervals [place] Rate: 56 P: [place]: 0 QRS: -14 QRSD: 95 T: 28 QT: 335 QTc: 325 Interpretive Statements SINUS BRADYCARDIA WITH OCCASIONAL PACS NONSPECIFIC T-WAVE ABNORMALITY ABNORMAL RHYTHM ECG Electronically Signed On 03-26-2023 14:26:05 CDT by Mitch Perez M.D.
[2023-03-26 14:03] LABS: Anion Gap 2 mmol/L (8-16); Blood Urea Nitrogen 18 mg/dL (9-20); Carbon Dioxide 31 mmol/L (22-30); Chloride 101 mmol/L (98-107); Estimated Glomerular Filt Rate > 60; Glucose 110 mg/dL (65-110); Potassium 3.9 mmol/L (3.4-5.0); Sodium 134 mmol/L (137-145)
== END 2023-03-26 13:10 | disposition home or self-care (01) ==
PROVIDERS: Anesthesiology; PCP Family Medicine; Visit Provider Orthopaedic Surgery
DX: I10 Essential (primary) hypertension (principal); Z01.818 Encounter for other preprocedural examination
CPT/HCPCS: 36415; 80048; 93005

== ENCOUNTER 2023-03-28 02:31 | Day surgery (SDC) | payer MEDICARE, SELFPAY ==
--- NOTE | 2023-03-26 12:35 | PM.IMHP ---
H&P: HPI History of Present Illness Date/Time: 03/26/23 12:35 Chief Complaint: right ankle Maisonneuve fracture with syndesmotic disruption. Narrative: 67-year-old male presents today for ORIF of his right ankle. He injured it on 03/24. He was coming out of the shower at the [facility] and slipped on the wet floor. He had immediate pain in the right ankle and the right knee. He was seen in the emergency room at [facility] and had x-rays done which showed a minimally displaced right proximal fibular fracture. He was placed doing long splint. He was seen in the office on 03/26. At that time x-rays were reviewed and stress view x-ray was done of the ankle which showed instability in the ankle. The medial clear space opened widely on the stress view. There is also widening of the syndesmotic space. Patient was advised this is an unstable ankle injury and is best treated with internal stabilization of the syndesmosis. There is no fractures noted in the ankle itself. No arthritic changes noted. He presents today for surgical fixation of the right ankle. Review of Systems Review of Systems: All systems reviewed & are unremarkable except as noted in HPI and below PMFSH Past Medical History Medical History Fistula HLD (hyperlipidemia) Hypertension Normal colonoscopy (~2018) repeat in 5 years 07/27/18 Obesity Prostatic hypertrophy Urinary incontinence Surgical History Surgical History H/O lateral meniscus repair of left knee H/O lateral meniscus repair of right knee History of tonsillectomy History of total right knee replacement S/P TURP (status post transurethral resection of prostate) Family History Family History Other Unknown family medical history Social History Social History Smoking status: Never smoker Second hand tobacco smoke exposure: No Additional smoking assessment comments: DENIES ANY FORM OF TOBACCO USE Alcohol intake: current Alcohol use details: 2 DRINKS PER MONTH Substance use: never Substance use type: does not use Lack of Transportation: No Lack of Food: Never True Current Housing: I Have Housing Concerned About Future Housing: No Difficulty Paying Gas/Electric Bills: No Difficulty Paying for Meds: No Currently Unemployed: No Education: Master's Degree or Higher Difficulty w/ Childcare or Family Care: No Living arrangements: with family Additional living arrangements comments: Occupation/Education: retired 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 Gender identity (if verbalized by the patient): Male Sexual Orientation (if Verbalized by the Patient): Straight or Heterosexual Spiritual care concerns: No Agree to blood products: Yes Meds Home Medications and Allergies Home Medications Medication Instructions Recorded Confirmed Type fluticasone propionate 50 1 spray intranasal PRN PRN allergy 07/19/19 02/20/23 History mcg/actuation nasal symptoms spray,suspension (Allergy Relief (fluticasone)) multivitamin 1 tablet PO DAILY 07/19/19 02/20/23 History cholecalciferol (vitamin D3) 25 25 mcg PO DAILY 05/25/20 02/20/23 History mcg (1,000 unit) capsule cetirizine 10 mg tablet (Zyrtec) 10 mg PO PRN PRN SEASONAL ALLERGIES 02/20/21 02/20/23 History acetaminophen 500 mg tablet 1,000 mg PO Q6H #90 tabs 03/07/22 02/20/23 Rx tamsulosin 0.4 mg capsule 0.4 mg PO QAM 30 days #30 caps 03/07/22 02/20/23 Rx hydralazine 25 mg tablet See Rx Instructions .Route 09/11/22 02/20/23 Rx .COMPLEX #180 tabs hydrochlorothiazide 25 mg tablet 25 mg PO DAILY #90 tabs 11/19/22 02/20/23 Rx lisinopril 20 mg tablet 20 mg PO DAILY #90 tabs 01/26/23 02/20/23 Rx hydroc
--- NOTE | 2023-03-26 13:04 | PC.NURSE ---
Report to the Outpatient Waiting Room, entrance under the green pavilion located off [facility], at time __1030 on date _03/28/23 . Planned Procedure Time: _1230 . Time changes happen often and if your time is changed the preop area will call you the afternoon before. - You and your visitor will be asked to self-screen and do not enter if you have any COVID symptoms. - A mask is optional within the hospital at this time. Patients may have clear liquids (water, carbonated beverages, clear teas, apple juice) until 3 hours prior to surgery with a maximum of 20 ounces. - No food from midnight until time of surgery - Infants may have breast milk until 4 hours before surgery, infant formula 6 hours prior to surgery. - Children will be allowed to drink immediately following surgery. If applicable, please bring a bottle or sippy cup to assist with drinking. Juice, water, soda, and popsicles are readily available. For infants on formula, please bring formula the day of surgery. Pacifiers are allowed. Take the following medications with a SIP of water the morning of surgery: ____HYDRALAZINE,PAIN PILL IF NEEDED DO NOT STOP ANY OF YOUR OTHER PRESCRIPTION MEDICATIONS PRIOR TO SURGERY ?EXCEPT THE FOLLOWING Medications to discontinue per physician ALL VITAMINS AND SUPPLEMENTS 3 DAYS PRE OP.LAST DOSE 03/25/23 Please no make-up, nail togolese, hairspray, perfume, deodorant, or body powder the day of surgery. No jewelry (including any body piercings) or valuables the day of surgery, leave them at home. Please take a shower or bath the night before, or the morning of, surgery with an antibacterial soap. Wear comfortable, loose fitting clothing. Children are encouraged to wear pajamas. - Jewelry must be removed prior to entering the operating room. Rings and piercings that are not removed may be cut off. - The hospital will not accept responsibility for valuables. - Please leave all valuables, including medications, at home the day of surgery. If you are going home after surgery, a licensed petrol tanker driver must drive you home. - NO public transportation without another adult if you receive anesthesia. - We recommend that an adult stay with you for 24 hours following discharge. - We also recommend that you do not drive, make important decision, drink alcoholic beverages, or take any drugs that were not prescribed by your health care provider for at least 24 hours after your discharge time. For Pediatric surgeries, we recommend two adults accompany the child home. Follow any additional instructions given to you from your surgeon. If you or anyone in your household have experienced Covid symptoms in the past week, please notify your surgeon or the nurse liaison at the phone number below for possible testing. Telephone instructions given to ____PATIENT and asked if any additional questions and then verbalized understanding. Patient advised to call surgeon office or pre surgery nurse liaison [phone] if any additional questions.
[2023-03-26 13:17] VITALS: BMI 37.6
[2023-03-28] VITALS (7 sets, daily range): BP systolic 136–169; BP diastolic 76–99; PULSE 49–66; RESP 15–18; TEMP 36.7; O2SAT 92–94; BMI 38.8
--- NOTE | ~2023-03-28 | XR_ITS ---
EXAMINATION: XR surgery orthopedic DATE: 03/28/2023 14:00 CDT INDICATION: ORIF RT ANKLE . TECHNIQUE: 6 fluoroscopic images of the right ankle were obtained during ORIF right ankle performed b y the surgeon. I was not present in the operating room. Fluoroscopy exposure time was 2 minutes 43 se conds. Air Kerma 6.2113 mGy. DAP 0.1231 mGym2. COMPARISON: None FINDINGS: Degenerative change at the ankle joint. Initial image demonstrates pin fixation of the distal fibula to the tibia, with a skin retractor overlying the soft tissues, followed by further fixation of the s yndesmosis. No unexpected radiopaque foreign body. IMPRESSION: Fluoroscopic documentation of ORIF right ankle. Please refer to the operative note for complete proce dural details . Reviewed, dictated and finalized at location K. IMPRESSION: Fluoroscopic documentation of ORIF right ankle. Please refer to the operative n ote for complete procedural details .
[2023-03-28] MEDS: ACETAMINOPHEN 500 MG TABLET 1000 MG PO (11:13)
[2023-03-28] MEDS: KETOROLAC 15 MG/ML VIAL (*BKC) IV PUSH (11:13)
--- NOTE | 2023-03-28 12:09 | WPDANESEPPF ---
Anes - Initial Pre Proc Eval Procedure: Operation Date: 03/28/23 12:30 Proposed Procedures p Open Reduction Internal Fixation Right Fibula Shaft with Syndesmosis - Wes Osorio MD Date/Time: 03/28/23 12:09 Surgeon: Wes Osorio MD Pre Op Diagnosis: Rt Fibula Shaft Fx with Syndesmotic Rupt Patient Data Age: 67 Gender: M Height: 1.8 m Weight: 126.4 kg Allergies Allergy/AdvReac Type Severity Reaction Status Date / Time pseudoephedrine Allergy Unknown Hypertensio Verified 03/28/23 11:09 n Home Medications Medication Instructions Recorded Confirmed Type fluticasone propionate 50 1 spray intranasal PRN PRN allergy 07/19/19 03/28/23 History mcg/actuation nasal symptoms spray,suspension (Allergy Relief (fluticasone)) multivitamin 1 tablet PO DAILY 07/19/19 03/28/23 History cholecalciferol (vitamin D3) 25 25 mcg PO DAILY 05/25/20 03/28/23 History mcg (1,000 unit) capsule cetirizine 10 mg tablet (Zyrtec) 10 mg PO PRN PRN SEASONAL ALLERGIES 02/20/21 03/28/23 History acetaminophen 500 mg tablet 1,000 mg PO Q6H #90 tabs 03/07/22 03/28/23 Rx tamsulosin 0.4 mg capsule 0.4 mg PO QAM 30 days #30 caps 03/07/22 03/28/23 Rx hydralazine 25 mg tablet See Rx Instructions .Route 09/11/22 03/28/23 Rx .COMPLEX #180 tabs hydrochlorothiazide 25 mg tablet 25 mg PO DAILY #90 tabs 11/19/22 03/28/23 Rx lisinopril 20 mg tablet 20 mg PO DAILY #90 tabs 01/26/23 03/28/23 Rx hydrocodone 5 mg-acetaminophen 325 1 tablet PO Q6H PRN pain #15 tabs 03/24/23 03/28/23 Rx mg tablet vitamin B complex 1 cap PO DAILY 03/26/23 03/28/23 History Patient hx anesthesia problems: none Family hx anesthesia problems: none Results Review: All pre-operative results and documents have been reviewed as part of the pre-operative evaluation. [facility] Past Medical History Medical History Fistula HLD (hyperlipidemia) Hypertension Normal colonoscopy (~2018) repeat in 5 years 07/27/18 Obesity Prostatic hypertrophy Urinary incontinence Surgical History Surgical History H/O lateral meniscus repair of left knee H/O lateral meniscus repair of right knee History of tonsillectomy History of total right knee replacement S/P TURP (status post transurethral resection of prostate) Family History Family History Other Unknown family medical history Social History Social History Smoking status: Never smoker Second hand tobacco smoke exposure: No Additional smoking assessment comments: DENIES ANY FORM OF TOBACCO USE Alcohol intake: current Alcohol use details: 2 DRINKS PER MONTH Substance use: never Substance use type: does not use Lack of Transportation: No Lack of Food: Never True Current Housing: I Have Housing Concerned About Future Housing: No Difficulty Paying Gas/Electric Bills: No Difficulty Paying for Meds: No Currently Unemployed: No Education: Master's Degree or Higher Difficulty w/ Childcare or Family Care: No Living arrangements: with family Additional living arrangements comments: Occupation/Education: retired 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
[2023-03-28] MEDS: LACTATED RINGERS 1,000 ML 30 ML IV CONT (12:17)
--- NOTE | 2023-03-28 13:27 | WPDHPUPDATE1 ---
History and Physical Update Update Date/Time: 03/28/23 13:27 History and Physical has been reviewed, including an updated exam of the patient. There are NO changes in the patient's condition. Risks, benefits, and alternatives have been discussed and questions answered. Patient agrees to proceed with procedure.
[2023-03-28] MEDS: ceFAZolin 3 GM/D5W 100 ML 100 ML IVPB (13:47)
[2023-03-28] MEDS: ceFAZolin SODIUM 1 GM VIAL IRRIGATION (14:38)
--- NOTE | 2023-03-28 16:48 | W.PM.PROC2 ---
Procedure Note - Detailed Date of Procedure 03/28/23 Pre-op Diagnosis Rt proximal Fibula Shaft Fx with Syndesmotic disruption Post-op Diagnosis Same Procedure Performed Open reduction internal fixation syndesmosis right with 2 syndesmotic tightrope devices and one 4.5 cortical screw Surgeon Wes Osorio MD Neuroscience Specialist Khurram cruz Anesthesia General Description of Procedure Patient was brought to the operating room and general anesthesia was administered. He received 3 g of Ancef and 2 g of vancomycin preoperatively. Exam of his right knee and there was quite a bit of medial opening on valgus stress probably 7 or 8 mm at 30? of flexion and 4 or 5 mm at 5? of flexion. Anterior drawer was stable but with a little bit of play. A bump was placed under the right buttock and a large center of blankets under the right distal thigh and the right lower leg prepped draped usual fashion. Under fluoro we could see that there was some shortening of the fibula at the syndesmosis and mortise and there appeared to be a rotational displacement as well. Decision was made to therefore exposed the syndesmosis at the anterolateral ankle. Limb was exsanguinated tourniquet elevated to 300 mmHg. A 5 in curvilinear incision was made along the distal fibular shaft curving anteriorly at the level of the lateral malleolus and dissection was carried down. We looked for but did not visualize any of the superficial branches of the peroneal nerve which I believe were just anterior to the incision. She neurovascular bundle trialing under the retinaculum at the level of the syndesmosis was exposed and protected. The distal syndesmosis and corner of the tibiotalar joint where identified. The fibula was grossly rotationally unstable and internal rotation tended to reduce it and longitudinal traction removed about 3 mm distally which reduced the intersection optimally between the incisor a and articular surface of tibial plafond fibular head and the lateral talar dome. We placed a guide pin from the 4.5 cannulated screw set and a angle 30? from the coronal plane directed from posterolateral to anteromedial in the distal fibular shaft and before we entered the tibia longitudinal traction anterior translation slight internal rotation and mediolateral compression were applied and pin driven crossed and we studied the reduction and it looked very good. Without the traction on the tendon to retract about a mm. Mortise was stable the syndesmotic clear space reduced and the medial clear space and mortise anatomic. We then used a guidewire from the syndesmotic tight rope set and placed this at the same 30 degree posterolateral to anteromedial alignment parallel to the tibial plafond and about a cm and half proximal to the joint and just before drilling into the tibia applied the traction again to the distal fibula and then drilled with the cannulated drill for the tightrope device passed the tight rope device without difficulty deployed the button and tightened down the construct solidly. We confirmed anatomic reduction of the mortise and stability. We then repeated the process with another tight rope about 18 mm proximal to the 1st 1. This was also deployed successfully excellent compression achieved. I placed another guide pin about fiber 6 mm proximal to the 1st guide pin in proper alignment and used the 3.2 cannulated drill from the 4.5 cannulated screw set to drill the hole and then we placed a solid 4.5 mm fully-threaded cortical screw large fragment set. This was inserted 2 mm past the medial cortex of the distal tibia for 4 cortices of fixation. The other guide pin was removed. Final fluoroscopic x-rays were obtained and stability of the mortise confirmed. We had released the tourniquet at 47 minutes after we had the 1st tight in place and no longer needed a clear view of the anterolateral ankle syndesmosis junction. The wound was irrigated with antibiotic solution closed with 2-0 sub
[2023-03-28] MEDS: fentaNYL CITRATE INJ (*CRX) 100 MCG/2 ML VIAL 25 MCG IV PUSH ×2 (17:01→17:13)
[2023-03-28] MEDS: oxyCODONE HCL (*CRX) 5 MG TAB IR PO (18:06)
== END 2023-03-28 19:01 | disposition home or self-care (01) ==
PROVIDERS: PCP Family Medicine; Visit Provider Orthopaedic Surgery
PROC: (CPT 27829; principal; 2023-03-28 12:30)
DX: S93.431A Sprain of tibiofibular ligament of right ankle, initial encounter (principal); S82.831A Other fracture of upper and lower end of right fibula, initial encounter for closed fracture; W01.0XXA Fall on same level from slipping, tripping and stumbling without subsequent striking against object, initial encounter; I10 Essential (primary) hypertension; E78.5 Hyperlipidemia, unspecified; N40.0 Benign prostatic hyperplasia without lower urinary tract symptoms; E66.9 Obesity, unspecified; Z68.38 Body mass index [BMI] 38.0-38.9, adult
CPT/HCPCS: 27829; 99199; A9270; C1713; J0690; J1100; J1170; J1885; J2250; J2405; J2704; J3010; J3370; J7120

== ENCOUNTER 2023-05-23 08:28 | Outpatient (CLI) | payer MEDICARE, SELFPAY ==
[2023-05-23 19:44] LABS: Alanine Aminotransferase 18 U/L (6-50); Albumin Level 4.1 g/dL (3.5-5.1); Alkaline Phosphatase 62 U/L (38-126); Anion Gap 5 mmol/L (8-16); Aspartate Amino Transferase 28 U/L (17-59); Bilirubin,Total 0.6 mg/dL (0.2-1.3); Blood Urea Nitrogen 16 mg/dL (9-20); Calcium 9.2 mg/dL (8.4-10.2); Carbon Dioxide 26 mmol/L (22-30); Chloride 105 mmol/L (98-107); Cholesterol 199 mg/dL (0-200); Estimated Glomerular Filt Rate > 60; Glucose 87 mg/dL (65-110); HDL Direct 38 mg/dL; Sodium 136 mmol/L (137-145); Triglycerides 160 mg/dL (<150)
[2023-05-23 19:55] LABS: LDL Cholesterol Direct 108 mg/dL
[2023-05-23 20:11] LABS: Prostate Specific Antigen 0.4 ng/mL (< OR = 4.0)
== END 2023-05-23 08:29 | disposition home or self-care (01) ==
PROVIDERS: PCP Family Medicine; Visit Provider Physician Assistant
DX: Z13.1 Encounter for screening for diabetes mellitus (principal); Z13.220 Encounter for screening for lipoid disorders; E66.9 Obesity, unspecified; Z12.5 Encounter for screening for malignant neoplasm of prostate
CPT/HCPCS: 36415; 80053; 80061; 84153; G0103

== ENCOUNTER 2024-07-19 14:22 | Outpatient (CLI) | payer MEDICARE, SELFPAY ==
--- NOTE | 2024-07-19 14:36 | ECG_ITS ---
Test Date: 2024-07-19 14:48:10 Measurements Intervals [place] Rate: 51 P: 0 CT: 0 QRS: -2 QRSD: 99 T: 36 QT: 447 QTc: 415 Interpretive Statements SINUS RHYTHM WITH MOBITZ I AV BLOCK (WENCKEBACH) PVC No previous ECG available for comparison Electronically Signed On 07-20-2024 15:00:09 INFECTION CONTROL RN by Mitch Perez M.D.
== END 2024-07-19 14:23 | disposition home or self-care (01) ==
PROVIDERS: PCP Family Medicine; Visit Provider Family Medicine
DX: I44.1 Atrioventricular block, second degree (principal); R00.1 Bradycardia, unspecified
CPT/HCPCS: 93005

== ENCOUNTER 2024-07-20 09:05 | Outpatient (CLI) | payer MEDICARE, SELFPAY ==
[2024-07-20 12:58] LABS: Basophils Absolute Auto 0.1 K/mm3 (0.0-0.1); Basophils Percent Auto 1.1 % (0.2-1.2); Eosinophils Absolute Auto 0.2 K/mm3 (0-0.3); Eosinophils Percent Auto 3.9 % (0-4.4); Hematocrit 47.5 % (42.0-52.0); Hemoglobin 16.3 g/dL (14.0-18.0); Immature Granulocyte Absolute 0.01 K/mm3 (0.00-0.031); Immature Granulocyte Percent A 0.2 % (0-0.5); Immature Platelet Fraction Pct 6.3 % (0.9-11.2); Lymphocytes Absolute Auto 1.92 K/mm3 (0.9-3.2); Lymphocytes Percent Auto 41.3 % (18.3-44.2); Mean Corpuscular HGB Conc 34.3 g/dl (32-36); Mean Corpuscular Volume 93.3 fl (80-100); Mean Platelet Volume 11.2 fl (7.4-10.4); Monocytes Absolute Auto 0.5 K/mm3 (0.1-0.6); Monocytes Percent Auto 9.9 % (2.6-8.5); Neutrophils Percent Auto 43.6 % (45.5-73.1); Platelet Count Result 128 k/mm3 (150-375); Red Blood Count 5.09 M/mm3 (4.6-6.20); Red Cell Distribution Width 13.2 % (11.5-14.5); White Blood Count 4.7 K/mm3 (4.5-10.0)
[2024-07-20 13:19] LABS: Alanine Aminotransferase 24 U/L (6-50); Albumin Level 4.2 g/dL (3.5-5.1); Alkaline Phosphatase 48 U/L (38-126); Anion Gap 4 mmol/L (4-12); Aspartate Amino Transferase 50 U/L (17-59); Bilirubin,Total 0.6 mg/dL (0.2-1.3); Blood Urea Nitrogen 22 mg/dL (9-20); Calcium 9.1 mg/dL (8.4-10.2); Carbon Dioxide 27 mmol/L (22-30); Chloride 107 mmol/L (98-107); Cholesterol 202 mg/dL (0-200); Estimated Glomerular Filt Rate > 60; Glucose 91 mg/dL (65-110); HDL Direct 44 mg/dL; Sodium 138 mmol/L (137-145); Triglycerides 160 mg/dL (<150)
[2024-07-20 13:43] LABS: LDL Cholesterol Direct 105 mg/dL
[2024-07-20 13:49] LABS: Prostate Specific Antigen 0.4 ng/mL (< OR = 4.0)
[2024-07-20 14:30] LABS: Hemoglobin A1C 5.5 % (<5.7)
== END 2024-07-20 09:06 | disposition home or self-care (01) ==
PROVIDERS: PCP Family Medicine; Visit Provider Family Medicine
DX: E78.2 Mixed hyperlipidemia (principal); I10 Essential (primary) hypertension; Z13.1 Encounter for screening for diabetes mellitus; Z12.5 Encounter for screening for malignant neoplasm of prostate; R53.83 Other fatigue
CPT/HCPCS: 36415; 80053; 80061; 83036; 84153; 85025; 85055; G0103

== ENCOUNTER 2024-08-03 01:14 | Day surgery (SDC) | payer MEDICARE, SELFPAY ==
[2024-07-23 08:15] VITALS: BMI 38.7
[2024-08-03 10:20] VITALS: BP 174/80; PULSE 41; RESP 18; TEMP 36.1; O2SAT 97
[2024-08-03] MEDS: LACTATED RINGERS 1,000 ML 150 ML IV CONT (10:35)
--- NOTE | 2024-08-03 10:50 | P.PNAN_ITS ---
Anes - Initial Pre Proc Eval Procedure: Operation Date: 08/03/24 11:30 Proposed Procedures p Colonoscopy - Neo Willis MD Date/Time: 08/03/24 10:50 Surgeon: Neo Willis MD Pre Op Diagnosis: personal hx of colon polyps Patient Data Age: 68 Gender: M Height: 1.8 m Weight: 126.1 kg Last Vital Signs Temp 36.1 C L 08/03/24 10:20 Pulse 41 L 08/03/24 10:20 Resp 18 08/03/24 10:20 BP 174/80 H 08/03/24 10:20 Pulse Ox 97 08/03/24 10:20 O2 Del Method Room Air 08/03/24 10:20 Allergies Allergy/AdvReac Type Severity Reaction Status Date / Time pseudoephedrine Allergy Unknown Hypertensio Verified 08/03/24 10:18 n Home Medications ?Medication ?Instructions ?Recorded ?Confirmed ?Type fluticasone propionate 50 1 spray intranasal PRN PRN allergy 07/19/19 07/23/24 History mcg/actuation nasal symptoms spray,suspension (Allergy Relief (fluticasone)) multivitamin 1 tablet PO DAILY 07/19/19 08/03/24 History cholecalciferol (vitamin D3) 25 25 mcg PO DAILY 05/25/20 08/03/24 History mcg (1,000 unit) capsule cetirizine 10 mg tablet (Zyrtec) 10 mg PO PRN PRN SEASONAL ALLERGIES 02/20/21 08/03/24 History tamsulosin 0.4 mg capsule 0.4 mg PO QAM 30 days #30 caps 03/07/22 08/03/24 Rx hydralazine 25 mg tablet See Rx Instructions .Route 05/15/23 08/03/24 Rx .COMPLEX #180 tabs lisinopril 20 mg tablet 20 mg PO DAILY #90 tabs 05/27/24 08/03/24 Rx omega 7-wga-uzu-fish oil 60 mg-90 1 cap PO DAILY 06/23/24 08/03/24 History mg-500 mg capsule (Fish Oil) hydrochlorothiazide 25 mg tablet 25 mg PO DAILY #90 tabs 07/01/24 08/03/24 Rx aspirin 81 mg tablet 81 mg PO DAILY 07/23/24 08/03/24 History Patient hx anesthesia problems: none Family hx anesthesia problems: none Results Review: All pre-operative results and documents have been reviewed as part of the pre- operative evaluation. [facility] Past Medical History Medical History Obesity Prostatic hypertrophy Normal colonoscopy (~2018) repeat in 5 years 07/27/18 Urinary incontinence HLD (hyperlipidemia) Hypertension Fistula Surgical History Surgical History History of total right knee replacement S/P TURP (status post transurethral resection of prostate) H/O lateral meniscus repair of right knee H/O lateral meniscus repair of left knee History of tonsillectomy Family History Family History Other Unknown family medical history Social History Social History Smoking status: Never smoker Second hand tobacco smoke exposure: No Additional smoking assessment comments: DENIES ANY FORM OF TOBACCO USE Alcohol intake: never Substance use: never Substance use type: does not use Do You Feel Safe in your Home?: Yes Lack of Transportation: No Lack of Food: Never True Current Housing: I Have Housing Concerned About Future Housing: No Difficulty Paying Gas/Electric Bills: No Difficulty Paying for Meds: No Currently Unemployed: No Education: Master's Degree or Higher Difficulty w/ Childcare or Family Care: No Living arrangements: with family Additional living arrangements comments: Occupation/Education: retired 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 Gender identity (if verbalized by the patient): Male Sexual Orientation (if Verbalized by the Patient): Straight or Heterosexual Spiritual care concerns: No Agree to blood products: Yes Anes - Eval Final PreProcedure Day of Procedure 08/03/24 10:50 Patient weight: obese Heart: regular rate and rhythm Lungs: clear to auscultation Airway: Mallampati scale class II Neurological: alert and oriented Last oral intake: >/= 8 hours ASA classification: III Emergent: no Anesthetic plan: proceed Anesthesia type and monitoring: general GIVS and standard monitoring Results Review: All pre-operative results and documents have been reviewed as part of the pre-op erative evaluation. Informed Consent: The patient's anesthetic plan and its attendant risks and benefits were discussed with the patient/family/POA. Questions were solicited and answers provided to the satisfaction of the patient/family/POA.
--- NOTE | 2024-08-03 11:58 | PM.IMHP ---
H&P: HPI History of Present Illness Date/Time: 08/03/24 11:58 Chief Complaint: History of colon polyps Narrative: The patient has a history of colonic polyps, the last colonoscopy was 5 years ago. Review of Systems Review of Systems: All systems reviewed & are unremarkable except as noted in HPI and below PMFSH Past Medical History Medical History Obesity Prostatic hypertrophy Normal colonoscopy (~2018) repeat in 5 years 07/27/18 Urinary incontinence HLD (hyperlipidemia) Hypertension Fistula Surgical History Surgical History History of total right knee replacement S/P TURP (status post transurethral resection of prostate) H/O lateral meniscus repair of right knee H/O lateral meniscus repair of left knee History of tonsillectomy Family History Family History Other Unknown family medical history Social History Social History Smoking status: Never smoker Second hand tobacco smoke exposure: No Additional smoking assessment comments: DENIES ANY FORM OF TOBACCO USE Alcohol intake: never Substance use: never Substance use type: does not use Do You Feel Safe in your Home?: Yes Lack of Transportation: No Lack of Food: Never True Current Housing: I Have Housing Concerned About Future Housing: No Difficulty Paying Gas/Electric Bills: No Difficulty Paying for Meds: No Currently Unemployed: No Education: Master's Degree or Higher Difficulty w/ Childcare or Family Care: No Living arrangements: with family Additional living arrangements comments: Occupation/Education: retired 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 Gender identity (if verbalized by the patient): Male Sexual Orientation (if Verbalized by the Patient): Straight or Heterosexual Spiritual care concerns: No Agree to blood products: Yes Meds Home Medications and Allergies Home Medications ?Medication ?Instructions ?Recorded ?Confirmed ?Type fluticasone propionate 50 1 spray intranasal PRN PRN allergy 07/19/19 07/23/24 History mcg/actuation nasal symptoms spray,suspension (Allergy Relief (fluticasone)) multivitamin 1 tablet PO DAILY 07/19/19 08/03/24 History cholecalciferol (vitamin D3) 25 25 mcg PO DAILY 05/25/20 08/03/24 History mcg (1,000 unit) capsule cetirizine 10 mg tablet (Zyrtec) 10 mg PO PRN PRN SEASONAL ALLERGIES 02/20/21 08/03/24 History tamsulosin 0.4 mg capsule 0.4 mg PO QAM 30 days #30 caps 03/07/22 08/03/24 Rx hydralazine 25 mg tablet See Rx Instructions .Route 05/15/23 08/03/24 Rx .COMPLEX #180 tabs lisinopril 20 mg tablet 20 mg PO DAILY #90 tabs 05/27/24 08/03/24 Rx omega 8-zlz-ofq-fish oil 60 mg-90 1 cap PO DAILY 06/23/24 08/03/24 History mg-500 mg capsule (Fish Oil) hydrochlorothiazide 25 mg tablet 25 mg PO DAILY #90 tabs 07/01/24 08/03/24 Rx aspirin 81 mg tablet 81 mg PO DAILY 07/23/24 08/03/24 History Allergies Allergy/AdvReac Type Severity Reaction Status Date / Time pseudoephedrine Allergy Unknown Hypertensio Verified 08/03/24 10:18 n Vital Signs Vital Signs - 24 hr 08/03/24 10:20 Temperature 97 F L Pulse Rate 41 L Respiratory Rate 18 Blood Pressure 174/80 H Pulse Oximetry 97 Oxygen Delivery Room Air Exam Const: General: cooperative and healthy appearing Resp: Effort & Inspection: normal respiratory effort and able to speak in complete sentences Auscultation: clear to auscultation bilaterally Cardio: Rate: regular rate Rhythm: regular rhythm GI: Inspection: normal to inspection GI Palp: No No hepatosplenomegaly present Auscultation: normal bowel sounds Rectal Exam: deferred Skin: General skin exam: normal color Psych: Appearance: grossly normal Mental Status: mental status grossly normal Assessment and Plan Assessment and plan (1) Colon cancer screening: Code(s): Z12.11 - Encounter for screening for malignant neoplasm of colon Status: Acute Assessment and Plan: The patient is deemed a good candidate for the procedure. Consent signed. Will proceed.
[2024-08-03 12:34] VITALS: BP 129/80; PULSE 45; RESP 20; O2SAT 97
[2024-08-03 12:44] VITALS: BP 127/79; PULSE 48; RESP 18; O2SAT 97
[2024-08-03 12:54] VITALS: BP 139/81; PULSE 45; RESP 20; O2SAT 97
== END 2024-08-03 13:12 | disposition home or self-care (01) ==
PROVIDERS: PCP Family Medicine; Referring Provider Student in an Organized Health Care Education/Training Program; Visit Provider Internal Medicine Gastroenterology
PROC: 0DJD8ZZ Inspection of Lower Intestinal Tract, Via Natural or Artificial Opening Endoscopic (ICD-10-PCS; CPT 45378; principal; 2024-08-03 11:30)
DX: Z12.11 Encounter for screening for malignant neoplasm of colon (principal); K63.5 Polyp of colon; K57.30 Diverticulosis of large intestine without perforation or abscess without bleeding; E78.5 Hyperlipidemia, unspecified; I10 Essential (primary) hypertension; N40.0 Benign prostatic hyperplasia without lower urinary tract symptoms; R32 Unspecified urinary incontinence; E66.9 Obesity, unspecified; Z68.38 Body mass index [BMI] 38.0-38.9, adult; Z79.82 Long term (current) use of aspirin; Z98.890 Other specified postprocedural states; Z87.731 Personal history of (corrected) tracheoesophageal fistula or atresia
CPT/HCPCS: 45385; 88305; J7120

== ENCOUNTER 2024-09-07 10:17 | Outpatient (CLI) | payer MEDICARE, SELFPAY ==
--- OUTSIDE RECORDS SUMMARY | 2024-09-09 17:20 | XMS_ITS | Clinical Summary ---
Author Organization [facility] Address [address] [place] [address]. [place] [address] [place] [address] Care Team Providers Care Decorating Machine Tender Name Role Phone Unavailable Primary Care Provider Unavailabl e Social History Tobacco Use Types Packs/Day Years Used Date Smoking Tobacco: Never Assessed Sex and Gender Information Value Date Recorded Sex Assigned at Not on file Legal Sex Male 5:54 PM CDT Gender Identity Not on file Sexual Orientation Not on file Plan of Treatment Health Maintenance Due Date Last Done Comments Colorectal Cancer Screening Colonoscopy (10 Years) 1955 Hepatitis C 12/26/1971 DTaP, Tdap and Td Vaccines ( 1 - Tdap) 1972 Zoster Vaccines (1 of 2) 12/26/2003 Pneumococcal Vaccine: 65+ Ye ars (1 of 1 - PCV) 2018 COVID-19 Vaccine ( - 2023-2 5 season) 2024 Influenza Adult (#1) 2024 RSV Immunization or 60+ Years (1 - 1-dose 75+ series) 2028 Meningococcal Vaccine Aged Out No leonard timothy eligible based on patient's age to complete this topic RSV Immunizations Under 20 Months Aged Out No longer eligible based on patient's age to complete this topic
--- OUTSIDE RECORDS SUMMARY | 2024-09-09 17:20 | XMS_ITS | Referral Summary ---
Author Organization [facility] Address [address] [place] [id number] Care Team Providers Care Optical Coating Technician Name Role Phone Cordelia Persaud MD Primary Care Provider [phone] Allergies Active Allergy Reactions Criticality Noted Date Comments Pseudoephedrine Other (See comments) Low 12/19/2021 BP increase Medications quinapriL-hydroc hlorothiazide (ACCURETIC) 20-25 mg per tablet 2 Active hydrALAZINE (APRESOLINE) 25 mg tablet 2 Active multivit-min/fol ic/vit K/lycop (MEN'S 50 PLUS MULTIVITAMIN ORAL) Men's 50 Plus Multivitamin Active cholecalciferol (VITAMIN D-3) 400 unit capsule Vitamin D3 Ac tive magnesium oxide (MAG-OX) 250 mg (150.8 mg elemental) tabletIndication s:hypomagnesemia 250 mg daily Active FISH OIL-DHA-EPA ORAL Take by mouth Active cetirizine (ZyrTEC) 10 mg tablet Take 10 mg by mouth daily Active ibuprofen (ADVIL,MOTRIN) 200 mg tab/cap Take by mouth every 6 (six) hours as needed for pain Active Active Problems Problem Noted Date Diagnosed Date Pre-operative cardiovascular examination 022 Social History Tobacco Use Types Packs/Day Years Used Date Smoking Tobacco: Never Assessed Smokeless Tobacco: Never AUDIT-C Answer Date Recorded Q1: How often do you have a drink containing alc ohol? 2-4 times a month 12/19/2021 Q2: How many drinks containi ng alcohol do you have on a typical day when you are drinking? 1 or 2 12/19/2021 Q3: How often do you have si x or more drinks on one occasion? Never 12/19/2021 Personal Safety Answer Date Recorded Getting School Help Needed Not on file 10/18 Sex and Gender Information Value Date Recorded Sex Assigned at Not on file Legal Sex Male 10:27 AM CDT Gender Identity Not on file Sexual Orientation Not on file Last Filed Vital Signs Vital Sign Reading Time Taken Comments Blood Pressure 136/80 12/19/2021 2:05 PM CDT Pulse 68 12/19/2021 2:05 PM CDT Temperature - - Respiratory Rate - - Oxygen Saturation 96% 12/19/2021 2:05 PM CDT Inhaled Oxygen Concentration - - Weight 126.3 kg (278 lb 7.1 oz) 12/19/2021 2:05 PM CDT Height 180.3 cm (5' 11 ) 12/19/2021 2:05 PM CDT Body Mass Index 38.83 12/19/2021 2:05 PM CDT Plan of Treatment Not on file Insurance MEDICARE R OPTIONS PPO [facility] HMO/PPO Address: [address] [address] [place] [address] [place] [address] Care Teams Optical Coating Technician Relationship Specialty Start Date End Date Cordelia Persaud MD PCP - General Family Medicine 12/04/21
--- OUTSIDE RECORDS SUMMARY | 2024-09-09 17:20 | XMS_ITS | Clinical Summary ---
Author Organization [facility] Address [address] [place] [id number] Care Team Providers Care Olericulturist Name Role Phone Cordelia Persaud MD Primary Care Provider [phone] Allergies Active Allergy Reactions Criticality Noted Date [...] Date Diagnosed Date Pre-operative cardiovascular examination 022 Surgical History Surgery Date Site/Laterality Comments REPLACEMENT TOTAL KNEE 08/18/2007 - 08/17/2008 Right REPLACEMENT TOTAL KNEE 08/18/2009 - 08/17/2010 Left TRANSURETHRAL RESECTION OF PROSTATE 08/18/2021 - 09/17/19 22 Medical History Medical History Date Comments Hypertension Allergic rhinitis Enlarged prostate Social History Tobacco Use Types Packs/Day Years [...] on file Sexual Orientation Not on file Obstetrics History Last Filed Vital Signs Vital Sign Reading [...] 12/19/2021 2:05 PM CDT Plan of Treatment Health Maintenance Due Date Last Done Comments Colon Cancer Screening-Colonoscopy 1955 Depression Screening 1955 Fall Risk Assessment 1955 Hepatitis C Screening 1955 Hepatitis B Screening 12/26/1971 Abdominal Aortic Aneurysm (A AA) Screen 2018 Well Visit 65+ 2018 Zoster Vaccine (2 of 3) 02/12/2019 12/18/2018 Pneumococcal vaccine 65+ (2 of 2 - PCV) 08/07/2021 08/07/2020 Covid-19 Vaccine (5 - 2023-2 5 season) 2024 11/29/2021, 06/08/2021, 10/24/2020, Additional history exists Influenza Vaccine (#1) 2024 , 05/07/2020, 05/10/2019, Additional history exists DTaP/Tdap/Td Vaccine (3 - Td or Tdap) 07/28/2028 07/28/2018, 12/23/2007, 08/18/1996 Insurance MEDICARE [employer] PPO Care Teams Olericulturist Relationship Specialty Start Date End Date Cordelia Persaud MD PCP - General Family Medicine 12/04/21
== END 2024-09-07 10:18 | disposition home or self-care (01) ==
LOC: ANHLAB 10:23
PROVIDERS: PCP Family Medicine; Visit Provider Internal Medicine Cardiovascular Disease
DX: R00.1 Bradycardia, unspecified (principal)
CPT/HCPCS: 36415; 84443

== ENCOUNTER 2024-09-16 12:12 | Outpatient (CLI) | payer MEDICARE, SELFPAY ==
[2024-09-16 13:11] LABS: Influenza A QL RT-PCR Negative (Negative); Influenza B QL RT-PCR Negative (Negative); RSV RNA, RT-PCR Negative (Negative); SARS-CoV-2 RNA PCR Negative (Negative)
== END 2024-09-16 12:13 | disposition home or self-care (01) ==
LOC: ANHLAB 12:13
PROVIDERS: PCP Family Medicine; Visit Provider Student in an Organized Health Care Education/Training Program
DX: R50.9 Fever, unspecified (principal); R05.9 Cough, unspecified; N42.1 Congestion and hemorrhage of prostate; Z20.822 Contact with and (suspected) exposure to COVID-19
CPT/HCPCS: 87637

== ENCOUNTER 2024-09-30 09:33 | Outpatient (CLI) | payer MEDICARE, SELFPAY ==
--- OUTSIDE RECORDS SUMMARY | 2024-09-30 09:55 | XMS_ITS | Clinical Summary ---
Author Organization [facility] Address [address] [place] [id number] Care Team Providers Care Tailings Man Name Role Phone Cordelia Persaud MD Primary Care Provider [phone] Allergies Active Allergy Reactions Criticality Noted Date [...] 12/23/2007, 08/18/1996 Insurance MEDICARE [employer] PPO [facility] H[facility]/PPO Address: [address] [address] [place] [address] Care Teams Tailings Man Relationship Specialty Start Date End Date Cordelia Persaud MD PCP - General Family Medicine 12/04/21
--- OUTSIDE RECORDS SUMMARY | 2024-09-30 09:55 | XMS_ITS | Referral Summary ---
Author Organization [facility] Address [address] [place] [phone] Care Team Providers Care Turner And Former Automatic Name Role Phone Cordelia Persaud MD Primary Care Provider [phone] Allergies Active Allergy Reactions Criticality Noted Date [...] on file Insurance MEDICARE R OPTIONS PPO [facility] HMO/PPO Address: [address] [address] [place] [address] [place] [address] Care Teams Turner And Former Automatic Relationship Specialty Start Date End Date Cordelia Persaud MD PCP - General Family Medicine 12/04/21
--- OUTSIDE RECORDS SUMMARY | 2024-09-30 09:55 | XMS_ITS | Clinical Summary ---
Author Organization [facility] Address [facility] [place] [address] Care Team Providers Care Furnace Mason Name Role Phone Unavailable Primary Care Provider [...] (1 - 1-dose 75+ series) 2028 Meningococcal B Vaccine Aged Out No l onger eligible based on patient's age to complete this topic Meningococcal Vaccine Aged Out No leonard timothy eligible based on patient's age to complete this topic RSV Immunizations Under 20 Months Aged Out No longer eligible based on patient's age to complete this topic
--- NOTE | 2024-10-09 16:10 | P.SLEEP_ITS ---
Sleep Study Date of Study: 09/30/24 Ordering Provider: Barrera Chisholm DO Interpreting Physician: Emelia Caldwell MD Sleep Study Type: Polysomnogram Height: 1.8 m Weight: 123.831 kg Body Mass Index: 38.0 Neck Circumference (inches): 20 Jordan: 16 Reason for Sleep Study Hypersomnolence Sleep History Ammon Larson is a 68-year-old man with hypersomnolence and witnessed apneas. His medical co-morbidities include hypertension and bradycardia. He wakes during the night with difficulty returning to sleep after awakenings. He rarely awakens from sleep feeling short of breath. He never wakes at night with heartburn, be lching or coughing.??He occasionally snores loudly enough that others complain. He occasionally has trouble sleeping when he has a cold. He rarely wakes up gasping for breath during the night. He rarely has breathing problems at night witnessed by others. He never sweats excessively at night. He never notices his heart pounding or beating irregularly during the night. He occasionally falls asleep during the day. He occasionally falls asleep involuntarily, rarely falls asleep while driving. He never experiences loss of muscle tone with strong emotion. He rarely has daytime difficulty at work due to excessive sleepiness. He never feels paralyzed on waking or falling asleep. He occasionally experiences vivid dreams upon waking or falling asleep. He never feels afraid of going to sleep. He occasionally has nightmares. He rarely recalls his dreams. He occasionally has thoughts racing through his mind. He occasionally feels sad, depressed or anxious. He notices parts of his body jerk. He never kicks during the night. He never feels crawling or aching feelings in his legs. He frequently feels muscles cramps in his legs at night. He never has morning jaw pain, never grinds his teeth at night. He rarely feels bothered by pain during the day, occasionally is awakened by leg cramps during the night. He never wakes up feeling stiff in the morning, and he never wakes feeling sore or achy. He rarely awakens with pain in his neck, spine, or joints. Normal bedtime is 12:15 am, falling asleep within a half an hour, waking once, occasionally twice during the night. While awake, he goes to the bathroom, gets a drink of water and performs box breathing, a type of breathing which can calm anxiety. He typically gets 6.5 hours of sleep per night. His wake up time is between 7:00 a.m. and 7:30 a.m.. He keeps the same schedule on weekends. Sometimes, he takes naps in the day, sometimes feels refreshed after a 10-15 minute nap. Habits:??Tobacco: never smoker Caffeine:5 cups per day Alcohol: none Recreational substances: none [facility] Past Medical History Medical History Obesity Prostatic hypertrophy Normal colonoscopy (~2017) repeat in 5 years 07/27/18 Urinary incontinence HLD (hyperlipidemia) Hypertension Fistula Surgical History Surgical History History of total right knee replacement S/P TURP (status post transurethral resection of prostate) H/O lateral meniscus repair of right knee H/O lateral meniscus repair of left knee History of tonsillectomy Family History Family History Other Unknown family medical history Social History Social History Smoking status: Never smoker Second hand tobacco smoke exposure: No Additional smoking assessment comments: DENIES ANY FORM OF TOBACCO USE Alcohol intake: never Substance use: never Substance use type: does not use Do You Feel Safe in your Home?: Yes Lack of Transportation: No Lack of Food: Never True Current Housing: I Have Housing Concerned About Future Housing: No Difficulty Paying Gas/Electric Bills: No Difficulty Paying for Meds: No Currently Unemployed: No Education: Master's Degree or Higher Difficulty w/ Childcare or Family Care: No Living arrangements: with family Additional living arrangements comments: Occupation/Education: retired 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 Gender identity (if verbalized by the patient): Male Sexual Orientation (if Verbalized by the Patient): Straight or Heterosexual Spiritual care concerns: No Agree to blood products: Yes Medications Home Medications ?Medication ?Instructions ?Recorded ?Confirmed ?Type fluticasone propionate 50 1 spray intranasal PRN PRN allergy 07/19/19 09/07/24 History mcg/actuation nasal symptoms spray,suspension (Allergy Relief (fluticasone)) multivitamin 1 tablet PO DAILY 07/19/19 09/07/24 History cholecalciferol (vitamin D3) 25 25 mcg PO DAILY 05/25/20 09/07/24 History mcg (1,000 unit) capsule cetirizine 10 mg tablet (Zyrtec) 10 mg PO PRN PRN SEASONAL ALLERGIES 02/20/21 09/07/24 History tamsulosin 0.4 mg capsule 0.4 mg PO QAM 30 days #30 caps 03/07/22 09/07/24 Rx lisinopril 20 mg tablet 20 mg PO DAILY #90 tabs 05/27/24 09/07/24 Rx omega 1-epi-cte-fish oil 60 mg-90 1 cap PO DAILY 06/23/24 09/07/24 History mg-500 mg capsule (Fish Oil) hydrochlorothiazide 25 mg tablet 25 mg PO DAILY #90 tabs 07/01/24 09/07/24 Rx aspirin 81 mg tablet 81 mg PO DAILY 07/23/24 09/07/24 History hydralazine 25 mg tablet See Rx Instructions .Route 08/19/24 09/07/24 Rx .COMPLEX #180 tabs Sleep Procedure A full night polysomnogram using the [employer] multi-channel system recorded the standard physiologic parameters including EEG, EOG, submentalis EMG, anterior tibialis EMG, EKG, body position, nasal and oral airflow using nasal pressure sensor and thermistor. Respiratory parameters of chest and abdominal movements were recorded with Respiratory Inductance Plethysmography belts. Oxygen saturation was recorded by pulse oximetry. Video monitoring was also performed. Sleep stages, periodic limb movements, and EEG arousals were scored in 30 second epochs according to the criteria of the AASM Scoring Manual. The Apnea-Hypopnea Index was calculated using CMS guidelines for definition of hypopnea while scoring respiratory events. He did not take a sleep aid at the start of the study. The patient did not meet criteria for a split night study so this was conducted as a full night basic nocturnal polysomnogram. Sleep Architecture The total recording time was 414.8 minutes. The total sleep time was 221.5 minutes. Sleep latency was 12.2 minutes. REM latency was 165.5 minutes. Sleep efficiency was 53.4%. The patient had 32 awakenings for an awakening index of 8.7. Wake after sleep onset time was 181.0 minutes. The patient spent 11.0 minutes, 5.0% of total sleep time in Stage N1. The patient spent 179.0 minutes, 80.8% in Stage N2. The patient spent 5.0 minutes, 2.3% in Stage N3. The patient spent 26.5 minutes, 12.0% in Stage REM sleep. Respiratory Analysis The patient had 11 hypopneas, 8 obstructive apneas, no mixed apneas, and 1 central apnea for an overall Apnea Hypopnea Index of 5.4. The REM Apnea Hypopnea Index was 40.8. The NREM Apnea Hypopnea Index was 2.8. The patient had a Central Apnea Hypopnea Index of 0.3. There were 21 Respiratory Effort Related Arousals resulting in a RERA index of 5.7 events per hour. The Respiratory Disturbance Index is 13.8 events per hour. There was no evidence of Prasad-Gomez Respirations. Arousals There were 78 total arousals for an arousal index of 21.1. There were 22 spontaneous arousals for an index of 6.0. There were 22 arousals due to respiratory events for an index of 6.0. There were 13 arousals due to periodic limb movements for an index of 3.5. There were 24 arousals due to isolated limb movements for an index of 6.5. Periodic Limb Movements The patient had 70 isolated limb movements with an index of 19.0. The patient had 86 periodic limb movements with an index of 23.3. Patient had a total of 156 limb movements with a total limb movement index of 42.3. Oximetry Data The patient had an average oxygen saturation of 92.4% in sleep with a minimum oxygen saturation of 86.0% and a maximum oxygen saturation of 96.0%. The patient had 11 oxygen desaturations that were 4% or greater resulting in an Oxygen Desaturation Index of 3.0. The patient spent 0.4 minutes, 0.1% of total sleep time with an oxygen saturation below 88%. Snoring Profile Snoring was mild to moderate. Cardiac Profile EKG showed normal sinus rhythm and sinus bradycardia, average pulse while awake was 43 beats per minute with minimum pulse 27 beats per minute and maximum pulse 80 beats per minute. During sleep average pulse is 40, minimum pulse 27 and maximum pulse is 56. He had episodes of heart rate below 30 for 10 seconds and these episodes of bradycardia were not associated with hypopneas or apneas. He had scattered sinus pauses lasting 1-2 seconds. He had occasional PVCs. Patient was asymptomatic during these episodes of bradycardia. EEG Profile Unremarkable, no evidence of seizures. Assessment and Plan Assessment and Plan (1) Obstructive sleep apnea: Code(s): G47.33 - Obstructive sleep apnea (adult) (pediatric) Status: Acute Assessment and Plan: This basic nocturnal polysomnogram Sep 30, 2024 shows mild obstructive sleep apnea, the apnea hypopnea index is 5.4 with desaturation to 86%. He qualifies for treatment with PAP therapy as he has hypertension as a medical comorbidity. Auto PAP is an option, or he could have a dedicated CPAP titration. I recommend that this patient be prescribed Resmed AirSense 11 AutoPAP 5-15 cm H2O, CPAP mask/filters/tubing and humidifier chamber. This should be used with all episodes of sleep. Compliance should be reviewed within 31-90 days of starting therapy for usage greater than 4 hours per night greater than 70% of the nights. The patient should be asked about symptoms such as excessive daytime sleepiness, quality of sleep, decreased nocturia, increased mental functioning such as memory, mood, and concentration. If this does not give benefit from AutoPAP, he should have a full night CPAP titration in the sleep lab with a sleep aid, if needed, to get to sleep and stay asleep. He should not nap on the day of the study. He had poor sleep efficiency, slept for 53% of the night, was awake for about half the night. He had an elevated limb movements index of 42.3 however hr id not have an elevated limb movements arousal index, 10 per hour. His history includes complaints of leg cramps waking him from sleep. This study did not show leg cramps. He takes diuretics which may contribute to electrolyte disturbances. Clinical correlation is recommended. (2) Bradycardia: Code(s): R00.1 - Bradycardia, unspecified Status: Acute Assessment and Plan: This patient has a low baseline heart rate of 43 beats per minute, and heart rate as low as 27 beats per minute. He has known 2nd degree AV block. His bradycardia during the study was occurring even at times he was not hypoxemic and at times he was not having apneas or hypopneas. Treating his obstructive sleep apnea is indicated to help improve bradycardia but is not expected to resolve it. His land surveying manager can make further management decisions regarding Holter monitoring or pacing. Data The data obtained during this sleep study is adequate for interpretation. Certification This sleep study has been reviewed by a board certified sleep medicine physician.
[2024-11-01 12:03] VITALS: BMI 38.0
== END 2024-10-01 06:56 | disposition home or self-care (01) ==
LOC: ANHCSM 09:34
PROVIDERS: PCP Family Medicine; Visit Provider Internal Medicine Cardiovascular Disease
DX: G47.33 Obstructive sleep apnea (adult) (pediatric) (principal); R00.1 Bradycardia, unspecified; I10 Essential (primary) hypertension
CPT/HCPCS: 95810

== ENCOUNTER 2024-12-09 09:19 | Outpatient (CLI) | payer MEDICARE, SELFPAY ==
[2024-12-09 09:48] LABS: Magnesium 1.9 mg/dL (1.6-2.3)
--- OUTSIDE RECORDS SUMMARY | 2024-12-09 10:04 | XMS_ITS | Clinical Summary ---
Author Organization [facility] Address [address] [place] [address] Care Team Providers Care Soil Technologist Name Role Phone Unavailable Primary Care Provider [...] Td Vaccines ( 1 - Tdap) 1972 Pneumococcal Vaccine: 50+ Ye ars (1 of 1 - PCV) 12/26/2003 Zoster Vaccines (1 of 2) 12/26/2003 COVID-19 Vaccine ( - 2023-2 5 season) 2024 RSV Immunization or 60+ Years (1 [...]
--- OUTSIDE RECORDS SUMMARY | 2024-12-09 10:04 | XMS_ITS | Referral Summary ---
Author Organization [facility] Address [address] [place] [phone] Care Team Providers Care Senior Linux Systems Engineer Name Role Phone Cordelia Persaud MD Primary Care Provider [phone] Allergies Active Allergy Reactions Criticality Noted Date [...] on file Insurance MEDICARE R OPTIONS PPO [facility] HMO/PPO Address: [address] [address] [place] [address] [place] [address] Care Teams Senior Linux Systems Engineer Relationship Specialty Start Date End Date Cordelia Persaud MD PCP - General Family Medicine 12/04/21
--- OUTSIDE RECORDS SUMMARY | 2024-12-09 10:04 | XMS_ITS | Clinical Summary ---
Author Organization [facility] Address [address] [place] [id number] Care Team Providers Care Umbrella Mender Name Role Phone Cordelia Persaud MD Primary Care Provider [phone] Allergies Active Allergy Reactions Criticality Noted Date [...] 12/23/2007, 08/18/1996 Insurance MEDICARE [employer] PPO [facility] HMO/PPO Address: [address] [address] [place] [address] Care Teams Umbrella Mender Relationship Specialty Start Date End Date Cordelia Persaud MD PCP - General Family Medicine 12/04/21
== END 2024-12-09 09:20 | disposition home or self-care (01) ==
PROVIDERS: PCP Family Medicine; Visit Provider Internal Medicine Cardiovascular Disease
DX: R00.1 Bradycardia, unspecified (principal)
CPT/HCPCS: 36415; 83735

== ENCOUNTER 2025-07-25 08:10 | Outpatient (CLI) | payer MEDICARE, SELFPAY ==
[2025-07-25 18:59] LABS: Hematocrit 45.4 % (42.0-52.0); Hemoglobin 15.1 g/dL (14.0-18.0); Mean Corpuscular HGB Conc 33.3 g/dl (32-36); Mean Corpuscular Hemoglobin 31.3 pg (26-34); Mean Corpuscular Volume 94.0 fl (80-100); Platelet Count Result 103 k/mm3 (150-375); Red Blood Count 4.83 M/mm3 (4.6-6.20); White Blood Count 3.9 K/mm3 (4.5-10.0)
[2025-07-25 19:23] LABS: Alanine Aminotransferase 23 U/L (6-50); Albumin Level 4.2 g/dL (3.5-5.1); Alkaline Phosphatase 50 U/L (38-126); Anion Gap 7 mmol/L (4-12); Aspartate Amino Transferase 43 U/L (17-59); Bilirubin,Total 0.5 mg/dL (0.2-1.3); Blood Urea Nitrogen 20 mg/dL (9-20); Calcium 9.4 mg/dL (8.4-10.2); Carbon Dioxide 24 mmol/L (22-30); Chloride 107 mmol/L (98-107); Cholesterol 171 mg/dL (0-200); Estimated Glomerular Filt Rate > 60; Glucose 79 mg/dL (65-110); HDL Direct 42 mg/dL; Potassium 3.9 mmol/L (3.4-5.0); Sodium 138 mmol/L (137-145); Total Protein 7.3 g/dL (6.3-8.2); Triglycerides 120 mg/dL (<150)
[2025-07-25 19:54] LABS: Thyroid Stimulating Hormone Reflex 1.240 uIU/mL (0.465-4.68)
[2025-07-27 14:08] LABS: Lead, Blood (Adult) 13.8 ug/dL (0.0-3.4)
== END 2025-07-25 08:11 | disposition home or self-care (01) ==
DX: E78.2 Mixed hyperlipidemia (principal); E11.9 Type 2 diabetes mellitus without complications; R53.83 Other fatigue; E03.9 Hypothyroidism, unspecified; Z77.011 Contact with and (suspected) exposure to lead
CPT/HCPCS: 36415; 80053; 80061; 83655; 84443; 85027

== ENCOUNTER 2025-08-04 08:01 | Outpatient (CLI) | payer MEDICARE, SELFPAY ==
--- OUTSIDE RECORDS SUMMARY | 2025-08-04 08:05 | XMS_ITS | Clinical Summary ---
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 Name Role Phone Unavailable Primary Care Provider [...] of 2) 12/26/2003 COVID-19 Vaccine ( - 2024-2 6 season) 2025 Influenza Adult (#1) 2025 RSV Immunization or 60+ Years (1 - 1-dose 75+ series) 2028 Hepatitis A Vaccines Aged Out No long er eligible based on patient's age to complete this topic Meningococcal B Vaccine Aged Out No l onger eligible based on patient's age to complete this topic Meningococcal Vaccine Aged Out No leonard timothy eligible based on patient's age to complete this topic RSV Immunizations Under 20 Months Aged Out No longer eligible based on patient's age to complete this topic
--- OUTSIDE RECORDS SUMMARY | 2025-08-04 08:05 | XMS_ITS | Clinical Summary ---
Author Organization [facility] Address [address] [place] [id number] Care Team Providers Care Sales Agent [employer] Name Role Phone Cordelia Persaud MD Primary Care Provider [phone] Allergies Active Allergy Reactions Criticality Noted Date [...] 2:05 PM CDT Height 180.3 cm (5' 11) 12/19/2021 2:05 PM CDT Body Mass Index 38.83 12/19/2021 2:05 PM CDT Plan of Treatment [place] [address] MEDICARE [facility] OPTIONS PPO Care Teams Sales Agent [employer] Insurance Relationship Specialty Start Date End Date Cordelia Persaud MD PCP - General Family Medicine 12/04/21
[2025-08-04 18:44] LABS: Hematocrit 44.8 % (42.0-52.0); Hemoglobin 14.9 g/dL (14.0-18.0); Immature Granulocyte Percent A 0.0 % (0-0.5); Immature Platelet Fraction Pct 6.6 % (0.9-11.2); Lymphocytes Absolute Auto 1.62 K/mm3 (0.9-3.2); Mean Corpuscular HGB Conc 33.3 g/dl (32-36); Mean Corpuscular Hemoglobin 31.3 pg (26-34); Mean Corpuscular Volume 94.1 fl (80-100); Nucleated Red Blood Cells Absolute Auto 0.000 K/mm3 (0.0-0.012); Nucleated Red Blood Cells Perc 0.0 % (0.0-0.2); Platelet Count Result 101 k/mm3 (150-375); Red Blood Count 4.76 M/mm3 (4.6-6.20); White Blood Count 3.8 K/mm3 (4.5-10.0)
[2025-08-04 19:59] LABS: Vitamin B12 321.0 pg/mL (239-931)
[2025-08-05 18:08] LABS: ANA by IFA Rfx Titer/Pattern Positive (.)
== END 2025-08-04 08:02 | disposition home or self-care (01) ==
DX: R53.83 Other fatigue (principal); D69.6 Thrombocytopenia, unspecified; Z13.88 Encounter for screening for disorder due to exposure to contaminants
CPT/HCPCS: 36415; 82607; 82746; 85025; 85055; 86038